=== PATIENT | female | born 1985 | race Caucasian/White ===

== ENCOUNTER → 2016-04-27 | Outpatient (CLI) | payer OTHER ==
--- NOTE | 2016-04-27 14:58 | US ---
EXAMINATION TYPE: US OB <= 14 wk fetus DATE OF EXAM: 04/27/2016 2:31 PM COMPARISON: NONE CLINICAL HISTORY: Z36 Confirm Dates. Confirm Dates, pt has no complaints at this time EXAM PERFORMED: Transabdominal (TA) EXAM MEASUREMENTS: GESTATIONAL AGE / DATING Physician Established: (13 weeks/5 days) EDC: 10/28/2016 Dates by LMP: (13 weeks/5 days) EDC: 10/28/2016 Dates by First Scan: No prior Dates by Current Scan for: (14 weeks/1 days) EDC: 10/25/2016 MATERNAL ANATOMY Uterus: 11.9 x 7.9 x 10.5 cm Right Ovary: 3.3 x 1.7 x 2.3 cm Left Ovary: 2.6 x 1.3 x 2.3 cm Post CDS / Adnexa: wnl Presence of free fluid: No Presence of subchorionic bleed: No GESTATION / SURVEY CRL: 8.1 cm (14 weeks/1 days) MSD: wnl Heart Rate: 144 bpm Rhythm: Normal IUP: Viable IUP IMPRESSION: 1. Single, viable IUP/ No abnormality seen at this time
[2016-04-27 15:10] LABS: CH 32.2; CHCM 35.5; HCT 35.5 % (34.0-46.0); HDW 3.29; HGB 12.3 gm/dL (11.4-16.0); MCH 31.6 pg (25.0-35.0); MCHC 34.6 g/dL (31.0-37.0); MCV 91.4 fL (80.0-100.0); Mean Platelet Volume 6.7; RBC 3.89 m/uL (3.80-5.40); RDW 14.4 % (11.5-15.5); WBC 6.6 k/uL (3.8-10.6)
[2016-04-27 15:11] LABS: Appearance,Urine Clear (Clear); Bacteria,Urine Rare /hpf; Bilirubin,Urine Negative (Negative); Glucose,Urine (UA) Negative (Negative); Ketones,Urine Negative (Negative); Leukocyte Esterase,Urine Trace (Negative); Mucus,Urine Rare /hpf; Nitrite,Urine Negative (Negative); Particle Count 1486; Protein,Urine Negative (Negative); RBC,Urine 1 /hpf (0-5); Specific Gravity,Urine 1.001 (1.001-1.035); Squamous Epithelial Cell,Urine 1 /hpf (0-4); UA Billing (MACRO vs. MICRO) MICRO; Urobilinogen,Urine <2.0 mg/dL (<2.0); WBC,Urine 1 /hpf (0-5)
[2016-04-27 15:24] LABS: Glucose 72 mg/dL (74-99); Non-African American GFR(MDRD) >60 (>60 ml/min/1.73 sqM)
[2016-04-28 06:52] LABS: HIV-1/HIV-2 Ab Screen NONREAC (NON REAC)
== END | disposition home or self-care (01) ==
LOC: RADUSWWP 14:14
PROVIDERS: ATTEND Obstetrics & Gynecology
DX: Z36 Encounter for antenatal screening of mother (principal); Z3A.14 14 weeks gestation of pregnancy
CPT/HCPCS: 36415; 76801; 81001; 82565; 82947; 85027; 86762; 86780; 86850; 86900; 86901; 87086; 87340; 87389; 87491; 87591

== ENCOUNTER → 2016-07-16 | Outpatient (CLI) | payer OTHER ==
[2016-07-16 12:12] LABS: CH 31.5; CHCM 33.7; HDW 3.78; HGB 11.7 gm/dL (11.4-16.0); MCH 32.4 pg (25.0-35.0); MCHC 34.3 g/dL (31.0-37.0); MCV 94.3 fL (80.0-100.0); Mean Platelet Volume 7.2; Poikilocytosis Slight; RBC 3.61 m/uL (3.80-5.40); RDW 13.7 % (11.5-15.5)
== END | disposition home or self-care (01) ==
LOC: LABWHC1 11:12
PROVIDERS: ATTEND Obstetrics & Gynecology
DX: Z34.82 Encounter for supervision of other normal pregnancy, second trimester (principal); Z3A.00 Weeks of gestation of pregnancy not specified
CPT/HCPCS: 36415; 82950; 85027

== ENCOUNTER 2016-10-21 09:52 | Inpatient (IN) | payer OTHER ==
[2016-10-16 11:22] VITALS: BMI 32.1
[2016-10-21] MEDS ORDERED: LACTATED RINGERS 1,000 ML IV ONE (10:32)
[2016-10-21] MEDS ORDERED: ceFAZolin 2 GM in SODIUM CHLORIDE 0.9% 100 ML IVPB ONE (10:32)
[2016-10-21] MEDS ORDERED: CITRIC ACID-SODIUM CITRATE 15 ML CUP PO ONE (10:32)
[2016-10-21 11:03] LABS: Anisocytosis Slight; Basophils % (A) 0 %; CH 29.5; CHCM 33.3; Eosinophils # (A) 0.1 k/uL (0-0.7); Eosinophils % (A) 1 %; HCT 33.4 % (34.0-46.0); HDW 3.64; HGB 11.8 gm/dL (11.4-16.0); Hypochromasia Slight; Luc # (Auto) 0.18; Luc % (Auto) 2; Lymphocytes # (A) 1.5 k/uL (1.0-4.8); Lymphocytes % (A) 18 %; MCH 31.6 pg (25.0-35.0); MCHC 35.4 g/dL (31.0-37.0); MCV 89.3 fL (80.0-100.0); Monocytes # (A) 0.5 k/uL (0-1.0); Monocytes % (A) 6 %; Neutrophils # (A) 5.8 k/uL (1.3-7.7); Neutrophils % (A) 72 %; Poikilocytosis Slight; RBC 3.74 m/uL (3.80-5.40); RDW 16.2 % (11.5-15.5); WBC 8.1 k/uL (3.8-10.6); WBC (Perox) 7.28
[2016-10-21 11:30] LABS: Manual Review Performed; Polychromasia Present
[2016-10-21] MEDS: LACTATED RINGERS 1,000 ML IV SCH ×4 (11:35→21:51)
[2016-10-21] MEDS ORDERED: MORPHINE SULFATE (PF) 0.3 MG/0.3 ML SYR ONE (12:06)
[2016-10-21] MEDS ORDERED: OXYTOCIN 10 UNIT/ML 1 ML VIAL ONE (12:06)
[2016-10-21] MEDS ORDERED: KETOROLAC 30 MG/ML 1 ML VIAL ONE (12:06)
[2016-10-21] MEDS ORDERED: NALBUPHINE 10 MG/ML AMPUL ONE (12:06)
[2016-10-21] MEDS ORDERED: ONDANSETRON 4 MG/2 ML VIAL ONE (12:06)
[2016-10-21] MEDS ORDERED: LACTATED RINGERS 1,000 ML BAG IV ONE (12:06)
[2016-10-21] MEDS ORDERED: PHENYLEPHRINE-0.9% NACL SYG 1 MG/10 ML SYRINGE ONE (12:06)
[2016-10-21] MEDS ORDERED: diphenhydrAMINE 50 MG/ML 1 ML VIAL IVP PRN ×3 (12:39→12:42)
[2016-10-21] MEDS ORDERED: ONDANSETRON 4 MG/2 ML VIAL IVP PRN ×2 (12:39→12:42)
[2016-10-21] MEDS ORDERED: NALOXONE 0.4 MG/ML 1 ML VIAL IV PRN ×2 (12:39→12:42)
[2016-10-21] MEDS ORDERED: MORPHINE SULFATE 4 MG/ML SYRINGE IVP PRN (12:39)
[2016-10-21] MEDS ORDERED: diphenhydrAMINE 25 MG CAP PO PRN (12:42)
[2016-10-21] MEDS ORDERED: diphenhydrAMINE 50 MG CAP PO PRN (12:42)
[2016-10-21] MEDS ORDERED: Acetaminophen-Codeine 300-30mg TAB PO PRN ×2 (12:42)
[2016-10-21] MEDS ORDERED: METOCLOPRAMIDE 5 MG/ML 2 ML VIAL IVP PRN (12:42)
[2016-10-21] MEDS ORDERED: ZOLPIDEM 5 MG TAB PO PRN (12:42)
[2016-10-21] MEDS ORDERED: SIMETHICONE 80 MG CHEWABLE PO PRN (12:42)
[2016-10-21] MEDS ORDERED: ACETAMINOPHEN TAB 325 MG TAB PO PRN (12:42)
--- NOTE | 2016-10-21 12:45 | P.HPOB ---
History of Present Illness H&P Date: 10/21/16 Chief Complaint: Intrauterine at 39 weeks prior sections Angela is a 30-year-old with 2 prior sections. She is here for repeat low transverse section. Her Precis course was, K by initial suspicion of placenta previa although ultrasounds later to this showed her placenta to not be a previa. Otherwise her Precis course has been unremarkable and all questions are answered for her prior to proceeding to the operating room. Risks/benefits/alternatives reviewed. Pertinent labs A+ blood type Rh antibody negative, rubella immune, hepatitis B surface antigen RPR negative. Physical exam vital signs are stable and afebrile. Heart regular, lungs clear, extremities without pain. Osteopathic exams unremarkable. Abdomen is soft gravid uterus is noted. Assessment intrauterine at term with 2 prior sections. Plan repeat low transverse section Past Medical History Past Medical History: No Reported History History of Any Multi-Drug Resistant Organisms: None Reported Past Surgical History: Section, Cholecystectomy Past Anesthesia/Blood Transfusion Reactions: No Reported Reaction Past Psychological History: Anxiety, Bipolar Smoking Status: Never smoker Past Alcohol Use History: None Reported Past Drug Use History: None Reported - Past Family History Mother Family Medical History: No Reported History Medications and Allergies Home Medications Medication Instructions Recorded Confirmed Type Pnv No.95/Ferrous Fum/Folic AC 1 each PO DAILY 10/16/16 10/21/16 History [ Multivitamin Tablet] Allergies Allergy/AdvReac Type Severity Reaction Status Date / Time No Known Allergies Allergy Verified 10/16/16 11:16 Exam Osteopathic Statement: *. No significant issues noted on an osteopathic structural exam other than those noted in the History and Physical/Consult. - Vital Signs Vital signs: Vital Signs Temp Pulse Resp BP Pulse Ox 10/21/16 10:12 97.0 F L 83 17 113/59 98 Intake and Output 10/20/16 10/21/16 10/21/16 22:59 06:59 14:59 Other: Weight 87.543 kg Patient Weight 10/22/16 06:59 Weight 87.543 kg Results Result Diagrams: 10/21/16 10:33 Abnormal Lab Results - Last 24 Hours (Table) 10/21/16 Range/Units 10:33 RBC 3.74 L (3.80-5.40) m/uL Hct 33.4 L (34.0-46.0) % RDW 16.2 H (11.5-15.5) %
--- NOTE | 2016-10-21 12:48 | P.OP ---
Date of Procedure: 10/21/16 Preoperative Diagnosis: Intrauterine : Prior sections Postoperative Diagnosis: Same Procedure(s) Performed: Repeat low transverse section Implants: Anesthesia: spinal Surgeon: Ezra Hartley Submarine Element Coordinator #1: Tor Kemp Estimated Blood Loss (ml): 400 IV fluids (ml): 750 Urine output (ml): 600 Pathology: other (Placenta) Condition: stable Disposition: floor Indications for Procedure: Operative Findings: Male scores of 8 and 9 at one and 5 minutes respectively weight was 7 lbs. 11 oz. Description of Procedure: Patient was taken to the operating suite where a spinal anesthetic was found be adequate. She was prepped and draped in the normal sterile fashion and placed in dorsal supine position with leftward tilt. Initially a Pfannenstiel skin incision was made and this incision was then carried through to underlying layer of the fascia was second knife. Fascia was then nicked in the midline and this opening was extended laterally with Adasm scissors. Superior and inferior aspect of this incision were then grasped tented up and bluntly and sharply dissected off the rectus muscles. Rectus muscles were then divided in the midline and sharp dissection through the peritoneum was made. This opening was then extended superiorly and inferiorly with good visualization of both bowel bladder. Bladder blade was then placed in the bladder flap was identified. It was entered sharply with Metzenbaum scissors and this opening was extended across the face of the uterus with Metzenbaum scissors. Bladder flap was then digitally created knife was used to incise uterus. This opening was fully developed with a hemostat and extended bluntly. Head was then atraumatically delivered mouth nares bulb suctioned and a nuchal cord 1 was noted but the baby was delivered through the nuchal cord. Mouth nares were then bulb suctioned remainder the baby was delivered and the umbilical cord was clamped cut usual fashion. Nursery personnel was present to assume care. Placenta was then delivered intact and Pitocin was added to the IV. Uterus was then exteriorized cleared of clots and debris and closed in 2 layers with 0 Vicryl suture. Once excellent hemostasis was obtained blood and debris was suctioned from the posterior cul-de-sac and it was reinserted into the abdomen. Peritoneal layer was then closed with 0 Vicryl suture fascial layer was closed with 0 Vicryl suture one layer of 3-0 Vicryl was placed in deep subcuticular tissues to reapproximate the skin and the skin was then closed with 3-0 Vicryl on a Harjinder needle. Plan, lap, needle counts were all correct 2 and patient was taken to the recovery room in stable and satisfactory condition.
[2016-10-21] MEDS: KETOROLAC 30 MG/ML 1 ML VIAL IVP PRN (20:03)
[2016-10-21] MEDS: SENNOSIDES-DOCUSATE SODIUM 1 EACH TAB PO SCH (20:03)
[2016-10-22] MEDS: LACTATED RINGERS 1,000 ML IV SCH ×2 (00:45→13:03)
[2016-10-22] MEDS: KETOROLAC 30 MG/ML 1 ML VIAL IVP PRN ×3 (01:40→13:42)
[2016-10-22 06:55] LABS: Anisocytosis Slight; Basophils % (A) 0 %; CH 30.6; Eosinophils % (A) 1 %; HCT 33.6 % (34.0-46.0); HGB 10.6 gm/dL (11.4-16.0); Hypochromasia Slight; Luc # (Auto) 0.16; Luc % (Auto) 2; Lymphocytes # (A) 1.2 k/uL (1.0-4.8); Lymphocytes % (A) 16 %; MCH 29.5 pg (25.0-35.0); MCHC 31.5 g/dL (31.0-37.0); MCV 93.6 fL (80.0-100.0); Mean Platelet Volume 8.6; Monocytes # (A) 0.3 k/uL (0-1.0); Monocytes % (A) 5 %; Neutrophils # (A) 5.8 k/uL (1.3-7.7); Neutrophils % (A) 77 %; Poikilocytosis Slight; RBC 3.59 m/uL (3.80-5.40); RDW 16.7 % (11.5-15.5); WBC 7.5 k/uL (3.8-10.6); WBC (Perox) 7.68
[2016-10-22] MEDS ORDERED: HYDROcodone/APAP 5-325MG 1 EACH TAB PO PRN (07:20)
[2016-10-22] MEDS: SENNOSIDES-DOCUSATE SODIUM 1 EACH TAB PO SCH ×2 (07:39→21:04)
--- NOTE | 2016-10-22 09:54 | P.PNOBGPC ---
Subjective - Subjective Principal diagnosis: Post op day 1 Interval history: Overall patient is doing very well. She is involuting, voiding and she is tolerating a diet. She voices no complaints. Vital signs are stable and afebrile. Continue current care. Patient reports: Reports appetite normal, Reports voiding normally, Reports pain well controlled, Reports ambulating normally : doing well Objective - Vital Signs Latest vital signs: Vital Signs Temp Pulse Resp BP Pulse Ox 10/22/16 08:00 97.9 F 67 16 114/59 99 10/22/16 03:39 98.2 F 65 16 104/49 100 10/22/16 00:00 98.4 F 65 14 110/58 99 10/21/16 20:00 97.8 F 69 16 117/65 98 10/21/16 17:40 98 10/21/16 17:00 17 10/21/16 16:00 98.2 F 70 16 101/51 99 10/21/16 15:40 16 10/21/16 14:54 71 17 104/55 97 10/21/16 14:24 68 17 98/53 100 10/21/16 13:53 63 16 106/52 98 10/21/16 13:39 66 17 98/54 98 10/21/16 13:21 57 L 18 94/55 98 10/21/16 13:09 65 17 99/54 98 10/21/16 12:49 96.4 F L 62 17 105/59 100 10/21/16 10:12 97.0 F L 83 17 113/59 98 Intake and Output 10/21/16 10/22/16 10/22/16 22:59 06:59 14:59 Intake Total 1000 600 Output Total 750 250 Balance -750 750 600 Intake: Intake, IV Titration 1000 Amount Lactated Ringers 1,000 ml 1000 @ 125 mls/hr IV .Q8H [facility] Rx#:[id number] Oral 600 Output: Urine 550 250 Uretheral (Evans) 400 Emesis 200 Other: # Voids 1 1 1 - Exam Lungs: bilateral: normal Chest: Normal S1, Normal S2 Extremities: Present: normal Abdomen: Present: normal appearance, soft. Absent: distention, tenderness Incision: Present: normal, dry, intact Uterus: Present: normal, firm - Labs Labs: Abnormal Lab Results - Last 24 Hours (Table) 10/21/16 10/22/16 Range/Units 10:33 06:34 RBC 3.74 L 3.59 L (3.80-5.40) m/uL Hgb 10.6 L (11.4-16.0) gm/dL Hct 33.4 L 33.6 L (34.0-46.0) % RDW 16.2 H 16.7 H (11.5-15.5) % Plt Count 129 L (150-450) k/uL
[2016-10-22] MEDS: HYDROcodone/APAP 5-325MG 1 EACH TAB PO PRN (18:46)
[2016-10-22] MEDS: IBUPROFEN 600 MG TAB PO PRN (23:30)
[2016-10-23] MEDS: HYDROcodone/APAP 5-325MG 1 EACH TAB PO PRN ×2 (02:14→07:45)
[2016-10-23] MEDS: SENNOSIDES-DOCUSATE SODIUM 1 EACH TAB PO SCH (07:48)
--- NOTE | 2016-10-23 07:57 | P.DS ---
Providers Date of admission: 10/21/16 09:52 Expected date of discharge: 10/23/16 Attending physician: Ezra Hartley Primary care physician: Stated None Hospital Course: Patient is doing very well post op day 2. She is ambulating, voiding, and she is tolerating her diet. She voices no complaints. Vital signs are stable and afebrile. Heart regular, lungs clear, extremities without pain. Abdomen is soft uterus is firm incision is clean dry and intact. We'll plan discharged home today. Prescriptions for [place] and Motrin are provided. Discharge instructions thoroughly reviewed and all questions are answered for her at this time. She is stable for discharge at this time. She will follow up with me in 1 week. Patient Condition at Discharge: Good Plan - Discharge Summary New Discharge Prescriptions: New HYDROcodone/APAP 5-325MG [[place] 5-325] 1 tab PO Q4HR PRN #30 tab PRN Reason: Pain Ibuprofen [Motrin] 600 mg PO Q6HR PRN #30 tab PRN Reason: Pain No Action Pnv No.95/Ferrous Fum/Folic AC [ Multivitamin Tablet] 1 each PO DAILY Discharge Medication List Pnv No.95/Ferrous Fum/Folic AC [ Multivitamin Tablet] 1 each PO DAILY [History] HYDROcodone/APAP 5-325MG [[place] 5-325] 1 tab PO Q4HR PRN #30 tab 10/23/16 [Rx] Ibuprofen [Motrin] 600 mg PO Q6HR PRN #30 tab 10/23/16 [Rx] Follow up Appointment(s)/Referral(s): Ezra Hartley DO [Doctor of Osteopathic Medicine] - 1 Week Activity/Diet/Wound Care/Special Instructions: No heavy lifting, limit stairs and driving and pelvic rest. If any high temperatures, heavy bleeding, or severe pain call my office Discharge Disposition: HOME SELF-CARE
--- NOTE | 2016-10-23 08:22 | P.PN ---
Progress Note - Text Date: 10/22/2016 Time: 715 The patient is status post section Vital signs stable VAS: 0-10 Patient has no complaints of pain. The patient incurred some minimal itching yesterday, this itching is now subsiding. Pain meds to be managed by service.
[2016-10-23 08:55] VITALS: BP 120/70; PULSE 78; RESP 17; TEMP 98.1
[2016-10-23] MEDS: IBUPROFEN 600 MG TAB PO PRN (09:58)
== END 2016-10-23 11:53 | disposition home or self-care (01) | DRG 766 ==
LOC: 4FBP 09:52
PROVIDERS: ADMIT Obstetrics & Gynecology; ATTEND Obstetrics & Gynecology
PROC: 10D00Z1 Extraction of Products of Conception, Low, Open Approach (ICD-10-PCS; principal; 2016-10-21 12:00)
DX: O34.211 Maternal care for low transverse scar from previous cesarean delivery (principal); O69.81X0 Labor and delivery complicated by cord around neck, without compression, not applicable or unspecified; Z37.0 Single live birth; Z3A.39 39 weeks gestation of pregnancy
CPT/HCPCS: 85025; 86850; 86900; 86901; 88307

== ENCOUNTER → 2018-04-19 | Outpatient (CLI) | payer OTHER ==
[2018-04-19 18:51] LABS: Albumin 4.7 g/dL (3.80-4.90); Albumin/Globulin Ratio 2.47 (1.60-3.17); Bilirubin, Conjugated 0.3 mg/dL (0.20-0.40); Bilirubin,Unconjugated 0.7 mg/dL; Globulin 1.9 g/dL (1.6-3.3); Total Protein 6.6 g/dL (6.2-8.2)
== END | disposition home or self-care (01) ==
LOC: LABWHC1 12:08
PROVIDERS: ATTEND Internal Medicine
DX: R74.8 Abnormal levels of other serum enzymes (principal)
CPT/HCPCS: 36415; 80076; 82248

== ENCOUNTER → 2018-10-05 | Outpatient (CLI) | payer OTHER ==
[2018-10-05 09:36] LABS: Basophils % (A) 0 %; Eosinophils # (A) 0.1 k/uL (0-0.7); Eosinophils % (A) 2 %; HCT 41.1 % (34.0-46.0); Lymphocytes # (A) 1.6 k/uL (1.0-4.8); Lymphocytes % (A) 31 %; MCH 31.9 pg (25.0-35.0); MCHC 34.1 g/dL (31.0-37.0); MCV 93.5 fL (80.0-100.0); Mean Platelet Volume 6.9; Monocytes # (A) 0.2 k/uL (0-1.0); Monocytes % (A) 5 %; Neutrophils % (A) 60 %; Platelet Count 201 k/uL (150-450); RBC 4.39 m/uL (3.80-5.40); RDW 14.1 % (11.5-15.5); WBC 5.1 k/uL (3.8-10.6)
[2018-10-05 17:47] LABS: African American GFR (CKD) 132.9 (60.0-200.0); Albumin 4.7 g/dL (3.80-4.90); Albumin/Globulin Ratio 2.61 (1.60-3.17); Anion Gap 6.5 mmol/L (4.00-12.00); BUN/Creat Ratio 15.71 Ratio (12.00-20.00); Calcium 9.5 mg/dL (8.7-10.3); Carbon Dioxide 26.5 mmol/L (21.6-31.8); Globulin 1.8 g/dL (1.6-3.3); LDL Cholesterol,Calculated 94.8 mg/dL (0.0-131.0); Potassium 4.9 mmol/L (3.5-5.5); Total Bilirubin 0.7 mg/dL (0.2-1.2); Total Protein 6.5 g/dL (6.2-8.2); VLDL Calculation 38.2 mg/dL (5.00-40.00)
== END | disposition home or self-care (01) ==
LOC: LABWHC1 09:00
PROVIDERS: ATTEND Internal Medicine
DX: F31.9 Bipolar disorder, unspecified (principal)
CPT/HCPCS: 36415; 80053; 80061; 84443; 85025

== ENCOUNTER → 2018-11-01 | Outpatient (CLI) | payer OTHER ==
[2018-11-01 11:40] VITALS: BP 122/83; PULSE 91; RESP 18
--- NOTE | 2018-11-01 12:26 | P.PAINCN ---
History of Present Illness - Reason for Consult Consult date: 11/01/18 - History of Present Illness This is an initial consultation for this 33 years old female with five-year history of severe midback and low back pain, the pain started after she fell from the stairs, and from that time on she continued to have severe pain, she treated with different pain medications with minimal relief, she continued to have severe pain but mostly in the low back area, the pain is continuous, increased with any activity, she denies any fever or night sweats she denies any change in the bowel movement or urination, she is able to ambulate, without difficulty but she has increased pain Past Medical History Past Medical History: Fibromyalgia Additional Past Medical History / Comment(s): hx migraines, "on metformin for sugar a little high and for wt loss", "something on my lower spine on MRI" History of Any Multi-Drug Resistant Organisms: None Reported Past Surgical History: Section, Cholecystectomy Past Anesthesia/Blood Transfusion Reactions: No Reported Reaction Past Psychological History: Anxiety, Bipolar Additional Psychological History / Comment(s): borderline personality disorder, severe anxiety disorder Smoking Status: Never smoker Past Alcohol Use History: None Reported Past Drug Use History: Marijuana - Past Family History Mother Family Medical History: No Reported History Medications and Allergies Home Medications Medication Instructions Recorded Confirmed Type ALPRAZolam [Xanax] 1 mg PO QID 10/28/18 11/01/18 History Cyclobenzaprine [Flexeril] 10 mg PO TID 10/28/18 11/01/18 History DULoxetine HCL [Cymbalta] 60 mg PO DAILY 10/28/18 11/01/18 History Ondansetron [Zofran] 4 mg PO TID PRN 10/28/18 11/01/18 History lamoTRIgine [LaMICtal] 100 mg PO DAILY 10/28/18 11/01/18 History metFORMIN HCL [Glucophage] 1,000 mg PO PC-SUPPER 10/28/18 11/01/18 History traMADol HCL [Ultram] 1 tab PO DAILY PRN 11/01/18 11/01/18 History Allergies Allergy/AdvReac Type Severity Reaction Status Date / Time No Known Allergies Allergy Verified 11/01/18 11:29 Physical Exam Vitals: Vital Signs Pulse Resp BP Pulse Ox 11/01/18 11:31 91 18 122/83 98 REVIEW OF ORGAN SYSTEMS: CONSTITUTIONAL: No fevers or chills. No recent weight loss. EYES: History of troubles with vision. No glasses. HEENT: No difficulties with hearing. No nosebleeds. No difficulty swallowing. RESPIRATORY: Past pneumonia. Denies any troubles with breathing or dyspnea on exertion. CARDIOVASCULAR: Denies any chest pain, palpitations, or recent heart attacks. GASTROINTESTINAL: Denies fatty food intolerance. Has change in bowel habits and gas bloat. GENITOURINARY: Denies any blood in urine. Has increased urinary frequency. NEUROLOGICAL: Denies any numbness or tingling along the distal extremities. No seizure disorders or headaches. MUSCULOSKELETAL: Has mid and low back pain. SKIN: Past t skin cancer. No rash. PSYCHIATRIC: Denies current depression or suicidal thoughts. ENDOCRINE: Denies current thyroid disorders. Denies any blood sugar glucose intolerance. HEME/LYMPHATIC: Denies any lumps and bumps around the neck. History of deep venous thrombosis. ALLERGY/IMMUNOLOGY: No immunoglobulin therapy. No immune deficiencies. BREAST: Denies current breast lumps, pain or nipple dis charge. Physical Examinations : Constitutiona : Cooperative , not in acute distress . HEENT : nech : supple , no Lymphadenopathy , normal thyroid size . eyes : no ptosis , no icterus, no photophobia . ENT : normal of hearing , normal oropharynx , no Thrush . Respiratory : Chest clear to auscultations Bilaterally , no wheezing , no Rhonchi . Cardiovascula : regular rate and rhythem , S1 , S2 , no S3 , no S4. Gastrointestina : abdomen soft no tenderness , bowel sounds , no organomegally . Genitourinary : Defferred . neurologic : Cranial nerve II to XII intact , no focal neurological deffecit . psychatric : alert , oriented X 3 , appropriate affect , intact judgment and insight . Lymphatic : no Lymphadenopathy . musculoskeltal : Cervical Spine motor stregnth in the deltoid and biceps, normal right side , normal Left side motor stregnth biceps and the wrist extensors normal right side ,normal left side . Thoracic spine: Flexion and extension and lateral rotation associated with severe pain Lumber spine moter stegnth lower extremities ,thigh and legs 5/5 Right side , 5/5 Left side deep tendon reflexes : normal Knee Jerk , normal ankle Jerk positive lumber facet Loading Test Range of motion of the lumbar spine Flexion 30 degrees, extension 10 degrees strait leg raising test= negative bilaterally Fabere test = negative bilaterally Sever tenderness over the Sacroiliac joint on the left side Gaenslen test positive on the left side Seated flexion test positive on the left Results Comments: MRI of the thoracic spine degenerative disc disease at T6 7 level and disc desiccation. MRI of the lumbar spine L5-S1 epidural lipomatosis and disc bulging at L5-S1 Assessment and Plan Assessment: Assessment and plan=1-lumbar spondylosis with lumbar facet arthropathy. 2-lumbar degenerative disc disease, lumbar epidural lipomatosis 3-left sacroiliitis 4-thoracic degenerative disc disease at T6 7 level Currently most of the pain is in the lumbar area, patient could benefit from diagnostic medial branch block L3, L4 ,L5 bilaterally Patient had epidural lipomatosis, which is relatively contraindication to do epidural steroid injection, Time with Patient: Greater than 30 PQRS Measure Charge Sheet Measure #130: Documentation of Current Meds in Medical Chart: Patient's medications documented in chart Measure #226: Tobacco Use: Screen & Cessation Intervention: Pt not a tobacco user Measure #111: Pneumonia Vaccination: Pneumococcal vaccine NOT administered or previously given Measure #47: Advance Care Plan: Advance care planning discussed & documented, pt chose/unable to give Measure #412: Opioid Treatment Agreement: No documentation of signed opioid treatment agreement Measure #408: Opioid Therapy Follow-up Evaluation: Patient had NO f/u eval minimum every 3 months during opioid therapy Measure #317: Preventitive Care & Scrn High Bld Press & F/U: Pre-hypertensive or hypertensive BP documented, pt will f/u with PCP Measure #128: Body Mass Index (BMI) Screening & Follow-up: BMI documented ABOVE normal parameters - f/u documented Measure #131: Pain Assessment & Follow-up: Pain positive & plan documented, Follow-up scheduled Measure #431: Unhealthy Alcohol Use Preventative Care & Scrn: Patient not identified as an unhealthy alcohol user PQRS Narrative: Smoking Status Never smoker Blood Pressure 122/83 Pain Intensity [Back] 7 Scale Used Numeric (1 - 10) Hx Alcohol Use (MH) No Home Medications: Ambulatory Orders ALPRAZolam [Xanax] 1 mg PO QID 10/28/18 Cyclobenzaprine [Flexeril] 10 mg PO TID 10/28/18 DULoxetine HCL [Cymbalta] 60 mg PO DAILY 10/28/18 Ondansetron [Zofran] 4 mg PO TID PRN 10/28/18 lamoTRIgine [LaMICtal] 100 mg PO DAILY 10/28/18 metFORMIN HCL [Glucophage] 1,000 mg PO PC-SUPPER 10/28/18 traMADol HCL [Ultram] 1 tab PO DAILY PRN 11/01/18
== END | disposition home or self-care (01) ==
LOC: PNWHC3 11:15
PROVIDERS: ATTEND Specialist
DX: G89.29 Other chronic pain (principal); M51.36 Other intervertebral disc degeneration, lumbar region; M47.816 Spondylosis without myelopathy or radiculopathy, lumbar region; M46.96 Unspecified inflammatory spondylopathy, lumbar region; M46.1 Sacroiliitis, not elsewhere classified; M51.34 Other intervertebral disc degeneration, thoracic region; E88.2 Lipomatosis, not elsewhere classified; Z98.890 Other specified postprocedural states; Z79.84 Long term (current) use of oral hypoglycemic drugs; Z79.891 Long term (current) use of opiate analgesic; Z79.899 Other long term (current) drug therapy
CPT/HCPCS: 99211

== ENCOUNTER 2018-11-10 09:55 | Day surgery (SDC) | payer OTHER ==
[2018-11-09 09:07] VITALS: BMI 33.3
[~2018-11-10 09:55] MED LIST: LACTATED RINGERS 1,000 ML IV SCH
[2018-11-10 10:44] VITALS: TEMP 98.2
[2018-11-10] MEDS ORDERED: LIDOCAINE 1% 20 ML VIAL (10MG/ML) FOR IV START INTRADERMA ONE (11:02)
[2018-11-10 11:14] LABS: Glucose,Whole Blood 104 mg/dL (75-99)
--- NOTE | 2018-11-10 11:54 | P.PCN ---
Date of Procedure: 11/10/18 Procedure(s) Performed: PREOPERATIVE DIAGNOSIS : 1- Lumbar spondylosis with Facet Arthropathy without myelopathy . 2- Lumber degenerative disc disease POSTOPERATIVE DIAGNOSIS: 1- Lumbar spondylosis with Facet Arthropathy without myelopathy . 2- Lumber degenerative disc disease PROCEDURE: Diagnostic bilateral L3 , L4 , and [id number] branch block under fluoroscopy guidance(fluoroscopy images available in the radiology Department ) (To block the facet joint at L4- 5, and L5-S1) ANESTHESIA: Local with Ropivacain 0.5 % 6 ml , moderate sedation with intravenous Versed 2 mg and Fentanyl 50 mcg. EBL: Minimal COMPLICATION: None. IV FLUIDS: 100 mL of normal saline. PROCEDURE INDICATION: Chronic low back pain secondary to Facet arthropathy unresponsive to conservative treatment. PROCEDURE DESCRIPTION: the patient was seen and identified in the preop holding area , risks and benefits and possible complications of the procedure and alternative were discussed with the patient, and the patient agreed to proceed with the procedure and signed the consent IV was started and vital signs monitored during the procedure and fluoroscopy was used to maximize the benefit and accuracy of the needle placement, and sedation was given to decrease patient anxiety, patient was taken to the procedure room and placed in prone position vital signs monitored in the back prepped with chlorhexidine X3 then under s trict sterile technique using a right oblique fluoroscopy ,the junction of the transverse process and the superior articulating process of the right L3 , L4, and L5 vertebra which corresponding to the fluoroscopy image of the eye of the Isaac dog on the block side for the medial branches and subsequently , after local infiltration of skin and subcu tissuies with Ropivacaine 0.5 % , one mL at each level ,then 22-gauge Quincke-type needles , 3 needle was used , each one of them placed at the junction of the base of the transverse process and the superior articular process at the appropriate level, and the needle was advanced until the periosteum contacted, needle placement confirmed with AP oblique and lateral view and after appropriate needle placement confirmed, and after negative aspiration for heme and CSF and there was no paresthesia 1-1/2 mL of Ropivacaine 0.5% mixed with 20 mg Depo-Medrol , then half mL injected at each level after negative aspiration the needle subsequently removed and the same procedure repeated for the left side at left side at L3, L4and L5 levels. At the end of the procedure and the needles removed and a bandage applied after the skin was cleaned the cleaning solution patient taken to recovery room in stable condition and monitors in the recovery room for 20-30 minutes and discharged home in stable condition after discharge criteria met and patient will follow up with the pain clinic in 2-4 weeks
[2018-11-10] MEDS ORDERED: IV FLUID CONTINUATION 1,000 ML IV ONE (11:59)
[2018-11-10 12:10] VITALS: RESP 16
[2018-11-10 12:29] VITALS: BP 107/65; PULSE 95
--- NOTE | 2018-11-10 13:37 | FL ---
EXAMINATION TYPE: FL guided pain mgmt statistic DATE OF EXAM: 11/10/2018 CLINICAL HISTORY: Low back pain. TECHNIQUE: Fluoroscopy. COMPARISON: None. FINDINGS: Fluoroscopic guidance was provided during pain relief procedure performed by Dr. Torres . A total of 8 seconds of fluoroscopic time was utilized during the procedure and 4 spot images are acquired. Images acquired shows needle localization at several levels in the lower lumbar spine. IMPRESSION: As Above.
== END 2018-11-10 12:31 | disposition home or self-care (01) ==
LOC: ORPAIN 09:55
PROVIDERS: ATTEND Specialist
DX: M47.816 Spondylosis without myelopathy or radiculopathy, lumbar region (principal); M51.36 Other intervertebral disc degeneration, lumbar region; M46.1 Sacroiliitis, not elsewhere classified; G89.29 Other chronic pain
CPT/HCPCS: 81025; 64493; 64494; J2250; J1030; J3010; 99152

== ENCOUNTER → 2018-11-28 | Day surgery (SDC) | payer OTHER ==
[2018-11-23 10:33] VITALS: BMI 33.3
[~2018-11-28] MED LIST changes: +IV FLUID CONTINUATION 1,000 ML IV ONE; +LACTATED RINGERS 1,000 ML IV ONE; +LIDOCAINE 1% 20 ML VIAL (10MG/ML) FOR IV START INTRADERMA ONE
[2018-11-28 09:41] VITALS: RESP 18; TEMP 97.2
[2018-11-28 09:51] LABS: Glucose,Whole Blood 111 mg/dL (75-99)
--- NOTE | 2018-11-28 11:14 | P.PCN ---
Date of Procedure: 11/28/18 Procedure(s) Performed: PREOPERATIVE DIAGNOSIS : Lumbar spondylosis with Facet Arthropathy without myelopathy POSTOPERATIVE DIAGNOSIS: same PROCEDURE: Second Diagnostic lumbar medial branch block with fluoroscopy at L3, L4, L5 lateral which covers facets L4-5 and L5-S1 ANESTHESIA: Local anesthetic; moderate IV sedation with Versed 1 mg, sedation time 15 minutes Fluoroscopy was used for the procedure and images were saved in the radiology portion of the chart. Surgeon: Tashia Martinez MD PROCEDURE INDICATION: Lumbar back pain without radiculopathy, not responsive to conservative management. PROCEDURE DESCRIPTION: the patient was seen and identified in the preop holding area , risks and benefits and possible complications of the procedure and alternatives were discussed with the patient, and the patient agreed to proceed with the procedure and signed the consent . IV was started , vital signs were monitored during the procedure and fluoroscopy was used to maximize the benefit and accuracy of the needle placement, and sedation was given to decrease patient anxiety. Patient was taken to the procedure room and placed in prone position. The lumbar region was prepped using chlorhexidineX-2. Under strict sterile technique using AP fluoroscopy the bilateral sacral ala were identified and using ipsilateral oblique fluoroscopy ,the junction of the transverse process and the superior articulating process of the L4, L5 vertebra which corresponds to the fluoroscopy image of the eye of the Isaac dog for the medial branches were identified. Subsequently, after local infiltration of skin with lidocaine 1% 0.2 mL at each level , a 25-gauge 5 inch Quincke-type needle was placed at the junction of the base of the transverse process and the superior articular process at the appropriate level as well as the sacral ala, and the needle was advanced until the periosteum contacted, needle placement confirmed with AP and oblique fluoroscopy, 0.2 mL of Isovue 200 per level was injected which revealed no vascular uptake and after negative aspiration, 0.5 mL of ropivacaine 0.5% was injected at each level and the needle subsequently removed . At the end of the procedure and the needles were removed and a bandage applied after the skin was cleaned. The patient was taken to recovery room in stable condition and monitors in the recovery room for 20-30 minutes and discharged home in stable condition after discharge criteria met and patient will follow up in clinic in 2 weeks EBL: Minimal COMPLICATION: None.
[2018-11-28 11:26] VITALS: BP 111/74; PULSE 82
--- NOTE | 2018-11-28 13:08 | FL ---
EXAMINATION TYPE: FL guided pain mgmt statistic DATE OF EXAM: 11/28/2018 COMPARISON: NONE HISTORY: Back pain TECHNIQUE: Fluoroscopy. FINDINGS: Fluoroscopic guidance was provided during procedure performed by Dr. Martinez. A total of 6 se conds of fluoroscopic time was utilized during the procedure and 3 spot images was acquired demonstra ting multilevel localization of the lumbar spine. IMPRESSION: As Above.
== END ==
LOC: ORPAIN 09:16
PROVIDERS: ATTEND Anesthesiology
DX: M47.816 Spondylosis without myelopathy or radiculopathy, lumbar region (principal); M79.7 Fibromyalgia; Z90.49 Acquired absence of other specified parts of digestive tract; F41.9 Anxiety disorder, unspecified; F31.9 Bipolar disorder, unspecified; F60.3 Borderline personality disorder; Z79.899 Other long term (current) drug therapy; Z79.84 Long term (current) use of oral hypoglycemic drugs; M51.36 Other intervertebral disc degeneration, lumbar region; M46.1 Sacroiliitis, not elsewhere classified; M51.34 Other intervertebral disc degeneration, thoracic region
CPT/HCPCS: 81025; 64493; 64494; J2250; Q9966; 99152

== ENCOUNTER → 2021-02-03 | Outpatient (CLI) | payer OTHER ==
[2021-02-03 14:24] LABS: HCT 44.7 % (37.2-46.3); HGB 14.5 g/dL (12.0-15.0); MCH 31.6 pg (27.0-32.0); MCHC 32.4 g/dL (32.0-37.0); MCV 97.4 fL (80.0-97.0); Mean Platelet Volume 9.4 fL (9.5-12.2); Platelet Count 216 X 10*3/uL (140-440); RBC 4.59 X 10*6/uL (4.10-5.20); RDW 11.9 % (11.5-14.5); WBC 7.17 X 10*3/uL (4.50-10.00)
[2021-02-03 15:21] LABS: ALT 28 U/L (8-44); AST 19 U/L (13-35); African American GFR (CKD) 132.3 (60.0-200.0); Albumin 4.1 g/dL (3.8-4.9); Albumin/Globulin Ratio 2.56 (1.60-3.17); Alkaline Phosphatase 34 U/L (41-126); BUN/Creat Ratio 15.77 Ratio (12.00-20.00); Blood Urea Nitrogen 10.5 mg/dL (9.0-27.0); Calcium 9.4 mg/dL (8.7-10.3); Carbon Dioxide 23.4 mmol/L (20.0-27.5); Chloride 105 mmol/L (96-109); Chol/HDL Ratio 3.75 Ratio; Globulin 1.6 g/dL (1.6-3.3); Glucose 113 mg/dL (70-110); Non-African American GFR(CKD) 114.1 (60.0-200.0); Potassium 5.3 mmol/L (3.5-5.5); Sodium 139 mmol/L (135-145); Total Protein 5.7 g/dL (6.2-8.2)
== END | disposition home or self-care (01) ==
LOC: LABWHC1 08:37
PROVIDERS: ATTEND Family Medicine
DX: Z00.01 Encounter for general adult medical examination with abnormal findings (principal)
CPT/HCPCS: 36415; 80053; 80061; 85027

== ENCOUNTER → 2021-05-29 | Outpatient (CLI) | payer OTHER ==
--- NOTE | 2021-05-29 19:22 | US ---
EXAMINATION TYPE: Ultrasound OB <= 14 week fetus DATE OF EXAM: 05/29/2021 2:44 PM COMPARISON: NONE CLINICAL HISTORY: 35-year-old female Z36.87 UNCERTAIN LMP. EXAM PERFORMED: Transabdominal (TA) EXAM MEASUREMENTS: GESTATIONAL AGE / DATING Physician Established: Not yet established Dates by LMP: (13 weeks/6 days) EDC: 11-28-21 Dates by First Scan: No previous this is first scan Dates by Current Scan for: (14 weeks/1 days) EDC: 11-26-21 MATERNAL ANATOMY Uterus: 15.5 x 9.1 x 6.9cm Right Ovary: obscured by overlying bowel gas Left Ovary: 2.6 x 1.4 x 1.6cm Post CDS / Adnexa: wnl Presence of free fluid: wnl GESTATION / SURVEY CRL: 8.2cm (14 weeks/1 days) Yolk Sac (normal less than 6mm): not visualized Heart Rate: 154 bpm IUP: Viable IUP Age Appropriate Anatomy: Cord Insertion: Unable to visualize due to position Limbs: Visualized Calvarium: Visualized Date of LMP: 02-21-21 Beta HcG (if available): Not available at this time IMPRESSION: 1. Single live intrauterine with estimated gestational age of 13 weeks 6 days by LMP. Curre nt ultrasound biometry is concordant (14 weeks 1 day by CRL). 2. Complete survey recommended at 18-20 weeks.
== END | disposition home or self-care (01) ==
LOC: RADUSWWP 14:18
PROVIDERS: ATTEND Obstetrics & Gynecology
DX: Z36.87 Encounter for antenatal screening for uncertain dates (principal); Z3A.13 13 weeks gestation of pregnancy
CPT/HCPCS: 76801

== ENCOUNTER 2021-11-21 06:02 | Inpatient (IN) | payer OTHER ==
[2021-11-21] MEDS: LACTATED RINGERS 1,000 ML IV SCH ×5 (06:20→23:49)
[2021-11-21] MEDS ORDERED: CITRIC ACID-SODIUM CITRATE 15 ML CUP PO ONE (06:26)
[2021-11-21 06:39] LABS: Basophils % (A) 0 %; Eosinophils # (A) 0.1 k/uL (0-0.7); Eosinophils % (A) 1 %; HCT 39.5 % (34.0-46.0); HGB 13.2 gm/dL (11.4-16.0); Lymphocytes # (A) 1.5 k/uL (1.0-4.8); Lymphocytes % (A) 18 %; MCH 32.5 pg (25.0-35.0); MCHC 33.4 g/dL (31.0-37.0); MCV 97.4 fL (80.0-100.0); Mean Platelet Volume 8.9; Monocytes # (A) 0.4 k/uL (0-1.0); Monocytes % (A) 4 %; Neutrophils # (A) 6.5 k/uL (1.3-7.7); Neutrophils % (A) 76 %; Platelet Count 150 k/uL (150-450); Poikilocytosis Slight; RBC 4.06 m/uL (3.80-5.40); RDW 14.4 % (11.5-15.5); WBC 8.6 k/uL (3.8-10.6)
--- NOTE | 2021-11-21 08:28 | P.HPOB ---
History of Present Illness H&P Date: 11/21/21 Chief Complaint: 39-0/7 weeks, repeat with tubal ligation the patient is a 35-year-old 4 para 3003 admitted at 39-0/7 weeks as established by last menstrual period and confirmed by 18 week ultrasound. She is admitted for repeat low transverse section having previously undergone 3 sections. She additionally has requested an intraoperative bilateral tubal occlusion with Filshie clips and signed consent to that effect in the office. Her has otherwise been uncomplicated. Group B strep status is negative. She does fall into the category of advanced maternal age and underwent fraction testing for trisomy which was negative. Obstetrical history: [employer] 4 para 3003 with 3 term sections as noted above. Current statistics are listed in history of present illness. EDC of 11/28/2021 was determined by last menstrual period and confirmed by 18 week ultrasound. Laboratory workup demonstrates a blood type of A+ with a negative antibody screen. Rubella status is immune. The remainder of the labor atory workup was within normal limits. One hour Glucola was initially elevated but followed by a normal three-hour glucose tolerance test. Group B strep status is negative. Gynecologic history: Unremarkable with no history of any infections to include STDs. Review of Systems review of systems is confined to history of present illness. Past Medical History Past Medical History: Fibromyalgia Additional Past Medical History / Comment(s): hx migraines, "on metformin for sugar a little high and for wt loss", Low Back Pain. Arthritis. Borderline Personality Disorder, Anxiety, Depression. History of Any Multi-Drug Resistant Organisms: None Reported Past Surgical History: Section, Cholecystectomy Past Anesthesia/Blood Transfusion Reactions: No Reported Reaction Past Psychological History: Anxiety, Bipolar Additional Psychological History / Comment(s): borderline personality disorder, severe anxiety disorder Smoking Status: Never smoker Past Alcohol Use History: None Reported Past Drug Use History: Marijuana Additional Drug Use History / Comment(s): CURRENT MARIJUANA USE - Past Family History Mother Family Medical History: No Reported History Medications and Allergies Home Medications Medication Instructions Recorded Confirmed Type Cyclobenzaprine [Flexeril] 10 mg PO TID 10/28/18 11/21/21 History DULoxetine HCL [Cymbalta] 60 mg PO DAILY 10/28/18 11/21/21 History Ondansetron [Zofran] 4 mg PO TID PRN 10/28/18 11/21/21 History LORazepam [Ativan] 0.5 tab PO DAILY 11/21/21 11/21/21 History Allergies Allergy/AdvReac Type Severity Reaction Status Date / Time No Known Allergies Allergy Verified 11/23/18 09:42 Exam Vital Signs Temp Pulse Resp BP Pulse Ox 11/21/21 06:19 97.4 F L 106 H 18 131/72 98 Intake and Output 11/20/21 11/21/21 11/21/21 22:59 06:59 14:59 Other: Weight 95.254 kg in general, this is a well-developed, well-nourished white female in no acute distress. Her heart has a regular rhythm and rate without murmur. Her lungs are clear to auscultation bilaterally in all [place]. Her abdomen is gravid, nondistended, has normal active bowel sounds, soft, nontender, and without any palpable masses aside from uterine fundus. Her extremities are without any cyanosis, clubbing, or edema and are nontender to palpation bilaterally. Digital cervical examination is deferred. Results Result Diagrams: 11/21/21 06:28 Assessment and Plan (1) Term Current Visit: Yes Status: Acute Code(s): Z34.90 - ENCNTR FOR SUPRVSN OF NORMAL , UNSP, UNSP TRIMESTER SNOMED Code(s): 31970328 (2) Previous section Current Visit: Yes Status: Acute Code(s): Z98.891 - HISTORY OF UTERINE SCAR FROM PREVIOUS SURGERY SNOMED Code(s): 219017167 (3) Family planning Current Visit: Yes Status: Acute Code(s): Z30.09 - ENCOUNTER FOR OTH GENERAL CNSL AND ADVICE ON CONTRACEPTION SNOMED Code(s): 767188580 Plan: the patient is admitted for repeat low transverse section with intraoperative bilateral tubal occlusion using Filshie clips. The risks and complications the procedures have been thoroughly explained and the patient unde rstands and agrees to proceed.
[2021-11-21] MEDS ORDERED: KETOROLAC 15 MG/ML 1 ML VIAL ONE (08:38)
[2021-11-21] MEDS ORDERED: NALBUPHINE 10 MG/ML (1 ML AMP) ONE (08:38)
[2021-11-21] MEDS ORDERED: MORPHINE SULFATE (PF) 0.3 MG/0.3 ML SYR ONE (08:38)
[2021-11-21] MEDS ORDERED: ONDANSETRON 4 MG/2 ML VIAL ONE (08:38)
[2021-11-21] MEDS ORDERED: diphenhydrAMINE 25 MG CAP PO PRN (09:32)
[2021-11-21] MEDS ORDERED: METOCLOPRAMIDE 5 MG/ML 2 ML VIAL IVP PRN (09:32)
[2021-11-21] MEDS ORDERED: KETOROLAC 15 MG/ML 1 ML VIAL IVP PRN (09:32)
[2021-11-21] MEDS ORDERED: ZOLPIDEM 5 MG TAB PO PRN (09:32)
[2021-11-21] MEDS ORDERED: diphenhydrAMINE 50 MG CAP PO PRN (09:32)
[2021-11-21] MEDS ORDERED: ONDANSETRON 4 MG/2 ML VIAL IVP PRN (09:32)
[2021-11-21] MEDS ORDERED: diphenhydrAMINE 50 MG/ML 1 ML VIAL IVP PRN ×2 (09:32)
[2021-11-21] MEDS ORDERED: NALOXONE 0.4 MG/ML 1 ML VIAL IV PRN (09:32)
[2021-11-21] MEDS ORDERED: SIMETHICONE 80 MG CHEWABLE PO PRN (09:32)
--- NOTE | 2021-11-21 09:41 | P.OP ---
Date of Procedure: 11/21/21 Preoperative Diagnosis: #1. 39-0/7 weeks, previous section 3 #2. Undesired fertility #3. Advanced maternal age Postoperative Diagnosis: same Procedure(s) Performed: #1. Repeat low transverse section #2. Intraoperative bilateral tubal occlusion with Filshie clips Anesthesia: spinal Surgeon: Cachorro Waite Catalyst Concentration Operator #1: Erin Oviedo Estimated Blood Loss (ml): 745 IV fluids (ml): 700 Urine output (ml): 200 Pathology: none sent Condition: stable Disposition: floor Operative Findings: preoperatively, the patient had requested intraoperative bilateral tubal occlusion and signed a consent to that effect in the office. She verbally reiterated this desire today both prior to the procedure and during the procedure. Intraoperatively, she was delivered of a viable 6 lbs. 11 oz. baby girl with Apgars of 8 at 1 minute and 9 at 5 minutes delivered in the direct occiput posterior position. The placenta was delivered manually, intact, and grossly normal with a grossly normal three-vessel cord. The uterus, tubes, and ovaries were entirely normal to inspection. After reaffirming the patient's desire for tubal ligation, Filshie clip was placed firmly across the isthmic portion of each fallopian tube and fixed. Description of Procedure: the patient was prepped and draped in usual fashion after spinal anesthesia was administered by the anesthesiologist. A Pfannenstiel incision was made through pre-existing scar and extended into the abdominal cavity without significant difficulty. There was a fair amount of scarring at the level of the rectus muscles which was ultimately negotiated without significant difficulty. The bladder peritoneum was elevated, incised, and reflected distally. A site was selected in the lower uterine segment where a 2 cm incision was made in the transverse plane to enter the uterus at which time clear fluid was noted. The incision was extended in both directions using the bandage scissors. The head was delivered up and through the incision where the nose and mouth were thoroughly suctioned. The remainder of the infant was delivered onto the field where the cord was doubly clamped, cut, and the passed for resuscitative measures with weight and Apgars as noted above. A segment of cord was doubly clamped, cut, and set aside should cord gases become necessary. The placenta was delivered manually, intact, and grossly normal with a grossly normal three- vessel cord as noted above. The uterus was exteriorized and the interior cavity of uterus swept of any remaining placental or membranous fragments. The margins of the uterine incision were grasped with Sorensen clamps and the incision closed in a single running locking stitch of 0 chromic catgut from margin to margin. Hemostasis appeared to be excellent. The posterior cul-de-sac was suctioned with a guard followed by laparotomy sponge. The patient was again asked regarding desire for tubal ligation and confirmed her desire to proceed. A Filshie clip was placed across the isthmic portion of the right fallopian tube approximately 2-3 cm from the cornu and firmly affixed. A similar operation was carried out on the left without difficulty. The uterus was replaced within the abdominal cavity and the gutters were swept of any remaining blood, fluid, or clot. The incision was reexamined and found to be hemostatic. The parietal peritoneum was loosely reapproximated in the layer of muscles examined and found to be hemostatic. The fascia was closed with 2 running stitches of 0 Vicryl proceeding from the lateral margins to the midpoint. The subcutaneous tissues were irrigated, made hemostatic with the Bovie, and reapproximated with a running stitch of 30 plain catgut. The skin was approximated with a running subcuticular stitch of 4-0 Vicryl followed by half-inch Steri-Strips placed with Mastisol. Calculated blood loss for the case was 745 mL. There were no complications. All sponge, instrument, and needle counts were correct. The patient tolerated the procedure well and proceeded to the recovery room in stable condition. Both mother and infant are resting comfortably in recovery.
[2021-11-21] MEDS ORDERED: OXYTOCIN 30 UNITS/500 ML NS 30 UNIT in SALINE 1 500ML.BAG IV SCH (09:45)
[2021-11-21] MEDS: ACETAMINOPHEN TAB 500 MG TAB PO SCH ×3 (12:59→23:48)
[2021-11-21] MEDS: IBUPROFEN 600 MG TAB PO SCH ×2 (15:33→21:40)
[2021-11-21] MEDS: SENNOSIDES-DOCUSATE SODIUM 1 EACH TAB PO SCH (19:25)
[2021-11-22] MEDS: LACTATED RINGERS 1,000 ML IV SCH ×3 (03:33→19:42)
[2021-11-22] MEDS: IBUPROFEN 600 MG TAB PO SCH ×3 (03:38→23:23)
[2021-11-22] MEDS: ACETAMINOPHEN TAB 500 MG TAB PO SCH ×3 (06:21→20:18)
[2021-11-22 08:07] LABS: Basophils % (A) 0 %; Eosinophils % (A) 1 %; HCT 33.5 % (34.0-46.0); Lymphocytes # (A) 0.9 k/uL (1.0-4.8); Lymphocytes % (A) 14 %; MCH 32.6 pg (25.0-35.0); MCHC 32.9 g/dL (31.0-37.0); MCV 99.2 fL (80.0-100.0); Macrocytosis Slight; Mean Platelet Volume 8.4; Monocytes # (A) 0.4 k/uL (0-1.0); Monocytes % (A) 5 %; Neutrophils # (A) 5.3 k/uL (1.3-7.7); Neutrophils % (A) 79 %; Platelet Count 126 k/uL (150-450); RBC 3.38 m/uL (3.80-5.40); RDW 14.6 % (11.5-15.5); WBC 6.7 k/uL (3.8-10.6)
[2021-11-22] MEDS: SENNOSIDES-DOCUSATE SODIUM 1 EACH TAB PO SCH ×2 (08:34→20:14)
--- NOTE | 2021-11-22 08:46 | P.PNOBGPC ---
Subjective - Subjective Principal diagnosis: postop day 1, repeat section with tubal ligation Interval history: Patient is doing well postoperatively. She is ambulating and voiding without difficulty. She is tolerating regular diet without nausea or vomiting. She is bottle feeding. She denies concerns. Lochia is minimal. Patient reports: Reports appetite normal, Reports voiding normally, Reports pain well controlled, Reports ambulating normally [place]: doing well, bottle feeding Objective - Vital Signs Latest vital signs: Vital Signs Temp Pulse Resp BP Pulse Ox 11/22/21 08:00 98.2 F 89 16 106/70 11/22/21 03:42 97.5 F L 89 18 121/77 99 11/22/21 00:00 97.7 F 72 18 106/69 97 11/21/21 19:31 97.5 F L 84 18 129/90 97 11/21/21 15:50 97.3 F L 73 18 122/78 99 11/21/21 11:33 97.7 F 67 18 119/68 99 11/21/21 11:03 97.1 F L 67 18 117/78 96 11/21/21 10:33 75 18 116/78 98 11/21/21 10:18 82 18 116/76 98 11/21/21 10:01 97.1 F L 72 18 120/82 96 11/21/21 09:48 96.8 F L 77 18 117/74 97 11/21/21 09:33 96.9 F L 79 18 113/59 99 Intake and Output 11/21/21 11/22/21 11/22/21 22:59 06:59 14:59 Output Total 550 200 Balance -550 -200 Output: Urine 550 200 Uretheral (Evans) 100 Other: Voiding Method Indwelling Catheter - Exam Extremities: Present: normal, edema Abdomen: Present: normal appearance, soft Incision: Present: normal, dry, intact Uterus: Present: normal, firm - Labs Labs: Abnormal Lab Results - Last 24 Hours (Table) 11/22/21 Range/Units 07:59 RBC 3.38 L (3.80-5.40) m/uL Hgb 11.0 L (11.4-16.0) gm/dL Hct 33.5 L (34.0-46.0) % Plt Count 126 L (150-450) k/uL Lymphocytes # 0.9 L (1.0-4.8) k/uL Assessment and Plan (1) S/P section Current Visit: Yes Status: Acute Code(s): Z98.891 - HISTORY OF UTERINE SCAR FROM PREVIOUS SURGERY SNOMED Code(s): 814899345 (2) Advanced maternal age (AMA) in Current Visit: Yes Status: Acute Code(s): BSW6534 - SNOMED Code(s): 403714215 (3) Family planning Current Visit: Yes Status: Acute Code(s): Z30.09 - ENCOUNTER FOR OT GENERAL CNSL AND ADVICE ON CONTRACEPTION SNOMED Code(s): 463815846 (4) Previous section Current Visit: Yes Status: Acute Code(s): Z98.891 - HISTORY OF UTERINE SCAR FROM PREVIOUS SURGERY SNOMED Code(s): 817270698 (5) Term Current Visit: Yes Status: Acute Code(s): Z34.90 - ENCNTR FOR SUPRVSN OF NORMAL , UNSP, UNSP TRIMESTER SNOMED Code(s): 64938343 Plan: Patient is doing well postoperatively. We'll plan to continue routine postoperative care and anticipate discharge home tomorrow.
[2021-11-23] MEDS: IBUPROFEN 600 MG TAB PO SCH ×2 (04:43→05:48)
[2021-11-23] MEDS: ACETAMINOPHEN TAB 500 MG TAB PO SCH (05:43)
--- NOTE | 2021-11-23 07:03 | P.PN ---
Progress Note - Text 11/22/21 716am 35-year-old female status post with spinal Duramorph. Patient seen and evaluated for postop pain control, patient has a VAS of 4 with no complaints of nausea vomiting or pruritus. Patient doing well and has no anesthesia related issues
[2021-11-23 08:33] VITALS: BP 138/81; PULSE 114; RESP 16; TEMP 97.9
[2021-11-23] MEDS: SENNOSIDES-DOCUSATE SODIUM 1 EACH TAB PO SCH (08:39)
--- NOTE | 2021-11-23 09:22 | P.DS ---
Providers Date of admission: 11/21/21 06:02 Expected date of discharge: 11/23/21 Attending physician: Cachorro Waite Primary care physician: Stated None - Discharge Diagnosis(es) (1) S/P section Current Visit: Yes Status: Acute (2) Advanced maternal age (AMA) in Current Visit: Yes Status: Acute (3) Family planning Current Visit: Yes Status: Acute (4) Previous section Current Visit: Yes Status: Acute (5) Term Current Visit: Yes Status: Acute Hospital Course: This is a 35-year-old 003 that was admitted to labor and delivery at 39- 0/7 weeks on 11/21. Patient was admitted for repeat section with tubal ligation, she has a history of 3 prior C-sections. In addition she states she is done with family planning therefore bilateral tubal occlusion with Filshie clips was requested and consented. She has been receiving routine care which has been essentially uncomplicated. GBS cultures were negative. On bloodwork patient has a blood type of A+, as stated above group beta strep cultures were negative. Patient was admitted to labor and delivery and repeat section with tubal ligation was performed without difficulty. For full details on the C- section please see the operative report. Patient delivered a viable female infant 6 lbs. 11 oz., Apgars of 8 and 9 at one and 5 minutes respectively. Patient's course has been uneventful. On this day #2 she is in noting and voiding without difficulty. She is tolerating a regular diet without nausea or vomiting. She states her pain is well-controlled. She is bottle feeding. She denies concerns and would like discharge home. Patient Condition at Discharge: Good Plan - Discharge Summary New Discharge Prescriptions: No Action Ondansetron [Zofran] 4 mg PO TID PRN PRN Reason: Nausea Cyclobenzaprine [Flexeril] 10 mg PO TID DULoxetine HCL [Cymbalta] 60 mg PO DAILY LORazepam [Ativan] 0.5 tab PO DAILY Discharge Medication List Cyclobenzaprine [Flexeril] 10 mg PO TID 10/28/18 [History] DULoxetine HCL [Cymbalta] 60 mg PO DAILY 10/28/18 [History] Ondansetron [Zofran] 4 mg PO TID PRN 08/30/19 [History] LORazepam [Ativan] 0.5 tab PO DAILY 11/21/21 [History] Follow up Appointment(s)/Referral(s): Cachorro Waite MD [STAFF PHYSICIAN] - 2 Weeks Patient Instructions/Handouts: (DC), (GEN) Discharge Disposition: HOME SELF-CARE
== END 2021-11-23 09:55 | disposition home or self-care (01) | DRG 785 ==
LOC: 4FBP 06:02
PROVIDERS: ADMIT Obstetrics & Gynecology; ATTEND Obstetrics & Gynecology
PROC: 0UL70CZ Occlusion of Bilateral Fallopian Tubes with Extraluminal Device, Open Approach (ICD-10-PCS; principal; 2021-11-21 08:00)
PROC: 10D00Z1 Extraction of Products of Conception, Low, Open Approach (ICD-10-PCS; principal; 2021-11-21 08:00)
DX: O34.211 Maternal care for low transverse scar from previous cesarean delivery (principal); O99.344 Other mental disorders complicating childbirth; F31.9 Bipolar disorder, unspecified; M19.90 Unspecified osteoarthritis, unspecified site; F41.9 Anxiety disorder, unspecified; F60.3 Borderline personality disorder; M79.7 Fibromyalgia; Z30.2 Encounter for sterilization; Z37.0 Single live birth; Z3A.39 39 weeks gestation of pregnancy; Z79.899 Other long term (current) drug therapy
CPT/HCPCS: 85025; 86850; 86900; 86901

== ENCOUNTER 2022-05-13 11:45 | Inpatient (IN) | payer MEDICAID, OTHER ==
[2022-05-13 12:56] LABS: Amphetamine Screen,Urine Not Detected (NotDetected); Barbiturate Screen,Urine Not Detected (NotDetected); Benzodiazepines Screen,Urine Detected (NotDetected); Cocaine Screen,Urine Not Detected (NotDetected); Methadone Screen, Urine Not Detected (NotDetected); Opiate Screen,Urine Not Detected (NotDetected); Oxycodone Screen, Urine Not Detected (NotDetected); Phencyclidine Screen,Urine Not Detected (NotDetected); Tricyclic Antidepressant,Urine Not Detected (NotDetected); Urn Cannabinoid Scrn Detected (NotDetected)
--- NOTE | 2022-05-13 13:59 | ED ---
Psych HPI - General Chief Complaint: Psychiatric Symptoms Stated Complaint: mental health Time Seen by Provider: 05/13/22 11:59 Source: patient, RN notes reviewed Mode of arrival: ambulatory Limitations: no limitations - History of Present Illness Initial Comments: 36-year-old female presents emergency Department chief complaint of needs psychiatric evaluation. Patient states she started some medication states that this started 3 weeks ago she's been having increasing anxiety, feels unstable she's been diagnosed with bipolar, anxiety. Patient was advised, emergency from for psychiatric evaluation denies being suicidal denies illicit drug use no alcohol abuse - Related Data Home Medications Medication Instructions Recorded Confirmed Cyclobenzaprine [Flexeril] 10 mg PO TID 10/28/18 11/21/21 DULoxetine HCL [Cymbalta] 60 mg PO DAILY 10/28/18 11/21/21 Ondansetron [Zofran] 4 mg PO TID PRN 10/28/18 11/21/21 LORazepam [Ativan] 0.5 tab PO DAILY 11/21/21 11/21/21 Allergies Allergy/AdvReac Type Severity Reaction Status Date / Time No Known Allergies Allergy Verified 05/13/22 11:55 Review of Systems ROS Statement: Those systems with pertinent positive or pertinent negative responses have been documented in the HPI. ROS Other: All systems not noted in ROS Statement are negative. Past Medical History Past Medical History: Fibromyalgia Additional Past Medical History / Comment(s): hx migraines, "on metformin for sugar a little high and for wt loss", Low Back Pain. Arthritis. Borderline Personality Disorder, Anxiety, Depression. History of Any Multi-Drug Resistant Organisms: None Reported Past Surgical History: Section, Cholecystectomy Past Anesthesia/Blood Transfusion Reactions: No Reported Reaction Past Psychological History: Anxiety, Bipolar Smoking Status: Never smoker Past Alcohol Use History: None Reported Past Drug Use History: Marijuana - Past Family History Mother Family Medical History: No Reported History General Exam Limitations: no limitations General appearance: alert, in no apparent distress, anxious Head exam: Present: atraumatic, normocephalic, normal inspection ENT exam: Present: normal exam, mucous membranes moist Neck exam: Present: normal inspection, full ROM. Absent: tenderness, meningismus, lymphadenopathy Respiratory exam: Present: normal lung sounds bilaterally. Absent: respiratory distress, wheezes, rales, rhonchi, stridor Cardiovascular Exam: Present: regular rate, normal rhythm, normal heart sounds. Absent: systolic murmur, diastolic murmur, rubs, gallop, clicks Neurological exam: Present: alert, oriented X3 Psychiatric exam: Present: anxious Skin exam: Present: warm, dry, intact, normal color. Absent: rash Course Vital Signs 05/13/22 11:50 Temperature 98.1 F Pulse Rate 99 Respiratory 20 Rate Blood Pressure 134/85 O2 Sat by Pulse 100 Oximetry Medical Decision Making - Medical Decision Making Was pt. sent in by a medical professional or institution (, [facility], [facility], urgent care, hospital, or detention...) When possible be specific @ -No Did you speak to anyone other than the patient for history (EMS, parent, family, police, friend...)? What history was obtained from this source @ -No Did you review nursing and triage notes (agree or disagree)? Why? @ -I reviewed and agree with nursing and triage notes Were old charts reviewed (outside hosp., previous admission, EMS record, old EKG, old radiological studies, urgent care reports/EKG's, detention records)? Report findings @ -No old charts were reviewed Differential Diagnosis (chest pain, altered mental status, abdominal pain women, abdominal pain men, vaginal bleeding, weakness, fever, dyspnea, syncope, headache, dizziness, GI bleed, back pain, seizure, CVA, palpatations, mental health, musculoskeletal)? @ -Bipolar disorder, schizophrenia, anxiety, depression EKG interpreted by me (3pts min.). @ -None X-rays interpreted by me (1pt min.). @ -None done CT interpreted by me (1pt min.). @ -None done U/S interpreted by me (1pt. min.). @ -None done What testing was considered but not performed or refused? (CT, X-rays, U/S, labs)? Why? @ -None What meds were considered but not given or refused? Why? @ -None Did you discuss the management of the patient with other professionals (professionals i.e. KATHERINE Lopez, [facility], lab, RT, psych nurse, dialysis social worker, mobile equipment mechanic, teacher, property portfolio officer, disability case manager)? Give summary @ -EPS, psychiatry evaluated the patient Was smoking cessation discussed for >3mins.? @ -No Was critical care preformed (if so, how long)? @ -No Were there social determinants of health that impacted care today? How? (Homelessness, low income, unemployed, alcoholism, drug addiction, transportation, low edu. Level, literacy, decrease access to med. care, care home, rehab)? @ -No Was there de-escalation of care discussed even if they declined (Discuss DNR or withdrawal of care, Hospice)? DNR status @ -No What co-morbidities impacted this encounter? (DM, HTN, Smoking, COPD, CAD, Cancer, CVA, ARF, Chemo, Hep., AIDS, mental health diagnosis, sleep apnea, morbid obesity)? @ -None Was patient admitted / discharged? Hospital course, mention meds given and route, prescriptions, significant lab abnormalities, going to OR and other pertinent info. @ -Admitted to 3 W. for psychiatric treatment Undiagnosed new problem with uncertain prognosis? @ -No Drug Therapy requiring intensive monitoring for toxicity (Heparin, Nitro, Insulin, Cardizem)? @ -No Were any procedures done? @ -No Diagnosis/symptom? @ -Bipolar disorder Acute, or Chronic, or Acute on Chronic? @ -Acute Uncomplicated (without systemic symptoms) or Complicated (systemic symptoms)? @ -Uncomplicated Side effects of treatment? @ -No Exacerbation, Progression, or Severe Exacerbation? @ -No Poses a threat to life or bodily function? How? (Chest pain, USA, LA, pneumonia, PE, COPD, DKA, ARF, appy, cholecystitis, CVA, Diverticulitis, Homicidal, Suicidal, threat to staff... and all critical care pts) @ -No - Lab Data Lab Results 05/13/22 Range/Units 12:20 Urine Opiates Screen Not Detected (NotDetected) Ur Oxycodone Screen Not Detected (NotDetected) Urine Methadone Screen Not Detected (NotDetected) Ur Propoxyphene Screen Not Detected (NotDetected) Ur Barbiturates Screen Not Detected (NotDetected) U Tricyclic Antidepress Not Detected (NotDetected) Ur Phencyclidine Scrn Not Detected (NotDetected) Ur Amphetamines Screen Not Detected (NotDetected) U Methamphetamines Scrn Not Detected (NotDetected) U Benzodiazepines Scrn Detected H (NotDetected) Urine Cocaine Screen Not Detected (NotDetected) U Marijuana (THC) Screen Detected H (NotDetected) Disposition Clinical Impression: Bipolar disorder Disposition: TRANSFER TO PSYCH HOSP/UNIT Referrals: Alvaro Paula MD [Primary Care Provider] - 1-2 days Time of Disposition: 14:52
[2022-05-13] MEDS ORDERED: MAG HYDROX/AL HYDROX/SIMETH 30 ML CUP PO PRN (16:48)
[2022-05-13] MEDS ORDERED: MAGNESIUM HYDROXIDE 2,400 MG/10 ML CUP PO PRN (16:48)
[2022-05-13] MEDS ORDERED: LORazepam 2 MG/ML INJ IM PRN (16:53)
[2022-05-13] MEDS ORDERED: haloperidoL 5 MG TAB PO PRN (16:53)
[2022-05-13] MEDS ORDERED: hydrOXYzine pamoate 25 MG CAP PO PRN (16:53)
[2022-05-13] MEDS ORDERED: HALOPERIDOL LACTATE 5 MG/ML 1 ML VIAL IM PRN (16:53)
[2022-05-13] MEDS: QUEtiapine 50 MG TAB PO SCH (20:19)
[2022-05-13] MEDS: DULoxetine HCL 60 MG CAPSULE.DR PO SCH (20:19)
[2022-05-13] MEDS: lamoTRIgine 25 MG TAB PO SCH (20:19)
[2022-05-14 07:13] LABS: Basophils % (A) 1 %; Eosinophils # (A) 0.1 k/uL (0-0.7); Eosinophils % (A) 2 %; HCT 44.3 % (34.0-46.0); HGB 14.9 gm/dL (11.4-16.0); Lymphocytes # (A) 2.1 k/uL (1.0-4.8); Lymphocytes % (A) 36 %; MCH 31.4 pg (25.0-35.0); MCHC 33.7 g/dL (31.0-37.0); MCV 93.3 fL (80.0-100.0); Mean Platelet Volume 7.5; Monocytes # (A) 0.3 k/uL (0-1.0); Monocytes % (A) 5 %; Neutrophils # (A) 3.1 k/uL (1.3-7.7); Neutrophils % (A) 54 %; Platelet Count 238 k/uL (150-450); RBC 4.75 m/uL (3.80-5.40); RDW 12.8 % (11.5-15.5); WBC 5.8 k/uL (3.8-10.6)
[2022-05-14] MEDS: LORazepam 1 MG TAB PO PRN (07:26)
[2022-05-14 07:41] LABS: ALT 34 U/L (4-34); AST 26 U/L (14-36); African American GFR (CKD) >90 (>60 ml/min/1.73 sqM); Albumin 4.9 g/dL (3.5-5.0); Alkaline Phosphatase 52 U/L (38-126); Anion Gap 9 mmol/L; Blood Urea Nitrogen 12 mg/dL (7-17); Calcium 9.3 mg/dL (8.4-10.2); Carbon Dioxide 25 mmol/L (22-30); Chloride 104 mmol/L (98-107); Glucose 113 mg/dL (74-99); Non-African American GFR(CKD) >90 (>60 ml/min/1.73 sqM); Potassium 4.9 mmol/L (3.5-5.1); Sodium 138 mmol/L (137-145); Total Bilirubin 1.4 mg/dL (0.2-1.3); Total Protein 7.4 g/dL (6.3-8.2)
[2022-05-14] MEDS: DULoxetine HCL 60 MG CAPSULE.DR PO SCH ×2 (08:35→20:34)
[2022-05-14] MEDS: lamoTRIgine 25 MG TAB PO SCH ×3 (08:35→20:34)
[2022-05-14] MEDS ORDERED: NICOTINE 14MG/24HR PATCH TRANSDERM SCH (09:00)
[2022-05-14] MEDS: PROPRANOLOL 20 MG TAB PO SCH ×2 (12:22→20:34)
--- NOTE | 2022-05-14 13:16 | P.HP ---
Psychiatric H&P - . H&P Date: 05/14/22 History & Physical: Allergies Allergy/AdvReac Type Severity Reaction Status Date / Time No Known Allergies Allergy Verified 05/13/22 11:55 Vital Signs Temp 97.6 F 05/14/22 06:42 Pulse 104 H 05/14/22 06:42 Resp 18 05/14/22 06:42 BP 141/63 05/14/22 06:42 Pulse Ox 99 05/14/22 06:42 FiO2 Intake & Output 05/13/22 05/14/22 05/14/22 18:59 06:59 18:59 Weight 97.522 kg 95.963 kg Laboratory Last Values WBC 5.8 k/uL (3.8-10.6) 05/14/22 06:46 RBC 4.75 m/uL (3.80-5.40) 05/14/22 06:46 Hgb 14.9 gm/dL (11.4-16.0) 05/14/22 06:46 Hct 44.3 % (34.0-46.0) 05/14/22 06:46 MCV 93.3 fL (80.0-100.0) 05/14/22 06:46 MCH 31.4 pg (25.0-35.0) 05/14/22 06:46 MCHC 33.7 g/dL (31.0-37.0) 05/14/22 06:46 RDW 12.8 % (11.5-15.5) 05/14/22 06:46 Plt Count 238 k/uL (150-450) 05/14/22 06:46 MPV 7.5 05/14/22 06:46 Neutrophils % 54 % 05/14/22 06:46 Lymphocytes % 36 % 05/14/22 06:46 Monocytes % 5 % 05/14/22 06:46 Eosinophils % 2 % 05/14/22 06:46 Basophils % 1 % 05/14/22 06:46 Neutrophils # 3.1 k/uL (1.3-7.7) 05/14/22 06:46 Lymphocytes # 2.1 k/uL (1.0-4.8) 05/14/22 06:46 Monocytes # 0.3 k/uL (0-1.0) 05/14/22 06:46 Eosinophils # 0.1 k/uL (0-0.7) 05/14/22 06:46 Basophils # 0.0 k/uL (0-0.2) 05/14/22 06:46 Sodium 138 mmol/L (137-145) 05/14/22 06:46 Potassium 4.9 mmol/L (3.5-5.1) 05/14/22 06:46 Chloride 104 mmol/L (98-107) 05/14/22 06:46 Carbon Dioxide 25 mmol/L (22-30) 05/14/22 06:46 Anion Gap 9 mmol/L 05/14/22 06:46 BUN 12 mg/dL (7-17) 05/14/22 06:46 Creatinine 0.61 mg/dL (0.52-1.04) 05/14/22 06:46 Est GFR (CKD-EPI)AfAm >90 (>60 ml/min/1.73 sqM) 05/14/22 06:46 Est GFR (CKD-EPI)NonAf >90 (>60 ml/min/1.73 sqM) 05/14/22 06:46 Glucose 113 mg/dL (74-99) H 05/14/22 06:[address] Glu mg/dL 93 05/14/22 06:46 Hemoglobin A1c 4.9 % (0.0-6.0) 05/14/22 06:46 Calcium 9.3 mg/dL (8.4-10.2) 05/14/22 06:46 Total Bilirubin 1.4 mg/dL (0.2-1.3) H 05/14/22 06:46 AST 26 U/L (14-36) 05/14/22 06:46 ALT 34 U/L (4-34) 05/14/22 06:46 Alkaline Phosphatase 52 U/L (38-126) 05/14/22 06:46 Total Protein 7.4 g/dL (6.3-8.2) 05/14/22 06:46 Albumin 4.9 g/dL (3.5-5.0) 05/14/22 06:46 TSH 5.080 mIU/L (0.465-4.680) H 05/14/22 06:46 Urine Opiates Screen Not Detected (NotDetected) 05/13/22 12:20 Ur Oxycodone Screen Not Detected (NotDetected) 05/13/22 12:20 Urine Methadone Screen Not Detected (NotDetected) 05/13/22 12:20 Ur Propoxyphene Screen Not Detected (NotDetected) 05/13/22 12:20 Ur Barbiturates Screen Not Detected (NotDetected) 05/13/22 12:20 U Tricyclic Antidepress Not Detected (NotDetected) 05/13/22 12:20 Ur Phencyclidine Scrn Not Detected (NotDetected) 05/13/22 12:20 Ur Amphetamines Screen Not Detected (NotDetected) 05/13/22 12:20 U Methamphetamines Scrn Not Detected (NotDetected) 05/13/22 12:20 U Benzodiazepines Scrn Detected (NotDetected) H 05/13/22 12:20 Urine Cocaine Screen Not Detected (NotDetected) 05/13/22 12:20 U Marijuana (THC) Screen Detected (NotDetected) H 05/13/22 12:20 Coronavirus (PCR) Not Detected (Not Detectd) 05/13/22 15:42 05/14/22 10:39 IDENTIFYING DATA: Patient is a 36-year-old female, currently lives with her boyfriend in a house, has 4 kids, is currently unemployed. HPI: Patient presented to the hospital [yesterday for psychiatric evaluation. According to her report patient apparently was started on medications recently and has been having increased anxiety and feeling unstable. He report also states the patient has history of bipolar disorder and anxiety. Patient's urine drug screen was positive for THC and benzodiazepines. Patient was seen by an EPS nurse who stated in her report that patient was "recommended to come in by her PCP", report also states that patient has been having last 5 days increase in restlessness, pacing, racing thoughts and fidgeting. She has also been describing in urge to pull out her hair and feeling "out of control". Report also states the patient has been having poor sleep and a verbal altercation with police. Patient was seen in agreeable to speak to quality analyst/technical writer. Patient claims that she was feeling fairly anxious before coming in the hospital and states that her psychiatrist started her on Depakote and was also started on Cymbalta. She claims that she didn't want to get "hair loss" so she stopped the Depakote on her own and was put on vraylar to help stabilize her mood. She claims that this has been going on for about a week or so now. States that she was feeling more anxious and pacing and feeling like "I always have to go go go". She claims that she saw her counselor and also her primary care doctor told her to come to the hospital. She states that she is currently involved in mental health court due to a verbal altercation and also is being charged with "obstruction". She states that she is feeling anxious at this time. Claims that she does have a history of manic episodes and a history of bipolar disorder and also BPD. States that her sleep has been on and off, appetite has been fair. Denying any paranoia at this time]. Patient denies any suicidal or homicidal ideations intent or plan. At this time patient denies any auditory or visual hallucinations. Patient admits to using marijuana about 2 joints a day. PAST PSYCHIATRIC HISTORY: Patient states that [she has history of bipolar disorder and borderline personality disorder]. Patient claims that she was previously on Cymbalta, Ativan, Xanax and also vraylar in the past. Claims that she was admitted to a psychiatric hospital in [place] in 2008. [Patient denies any psychiatric outpatient follow-up currently but did see a nurse practitioner [facility] counseling previously.] [Patient claims that she cut her wrists previously in a suicide attempt. Past Medical History: Fibromyalgia Additional Past Medical History / Comment(s): hx migraines, "on metformin for sugar a little high and for wt loss", Low Back Pain. Arthritis. Borderline Personality Disorder, Anxiety, Depression. History of Any Multi-Drug Resistant Organisms: None Reported Past Surgical History: Section, Cholecystectomy Past Anesthesia/Blood Transfusion Reactions: No Reported Reaction Past Psychological History: Anxiety, Bipolar Smoking Status: Never smoker Past Alcohol Use History: None Reported Past Drug Use History: Marijuana ALLERGIES: as per EMR CHEMICAL DEPENDENCY HISTORY: as per HPI FAMILY PSYCHIATRIC/SUBSTANCE USE HISTORY: States that her mother has bipolar disorder SOCIAL HISTORY: Patient was born and raised in [facility] and also in [place]. She claims that she has completed high school and did some college. States that she did go to [place]way briefly recently for obstruction. She currently lives with her boyfriend and 4 children in a house. She is unemployed. MENTAL STATUS EXAM: General Appearance: Patient appears to be [overweight, disheveled hair,] stated age is alert, directable yet is tearful at times. Patient appears to have [poor] hygiene and grooming. Behavior: Patient is seated without any agitated behavior. Tearful. Speech: Patient's speech is [fluent and nonpressured.] Mood/Affect: Patient reports their mood is "anxious", affect is congruent Suicidality/Homicidality: Patient denies having any homicidal ideation intent or plan. [Denies any suicidal ideations intent or plan] Perceptions: Patient denies any visual hallucinations [and denies any auditory hallucinations] Though content/process: Minimizing her need for hospitalization, focused on discharge. No paranoia. Poor insight. Memory and concentration: AOX3, grossly intact for the purposes of this session. Can spell "WORLD" backwards Judgment and insight: [poor] STRENGTHS/WEAKNESSES: strength is that patient is [resilient]. Weakness is that patient [has poor judgment and is impulsive] INTELLECT: [average] IMPRESSIONS: []Bipolar disorder unspecified anxiety disorder NOS borderline persxonality disorder adverse medication reaction cannabis use disorder PLAN: -Patient is admitted under [voluntary] status to MHU for stabilization of psychiatric symptoms and safety. Patient has signed [adult voluntary form and] [medication consent] and is placed in patient's chart. -Medications : Will start patient on []Lamictal, 50 mg twice a day plus 25 mg at 1300 hr for mood stabilization, will continue titrating up as needed. seroquel 50 mg qhs for mood stabilization/insomnia. inderall 20 mg bid for akithesia/restlessness. continue cymbalta 60 mg bid for depression/anxiety, vistaril prn for anxiety. -Ativan [and Haldol] PRN for agitation/aggression [-Patient was counselled on substance abuse and desired to cut back on use] -Patient was informed of the risks, benefits and side effects of the medication and patient verbally consented to taking the medications. Patient signed med consent form and was placed in chart. -Internal Medicine consult to perform medical evaluation and physical. -NRT - not needed as patient does not smoke -SW on board for discharge planning. Encourage patient to participate in groups to work on coping skills.
[2022-05-14 13:32] LABS: Appearance,Urine Cloudy (Clear); Bilirubin,Urine Negative (Negative); Blood,Urine Negative (Negative); Calcium Oxalate Crystals,Urine Many /hpf; Color,Urine Yellow; Glucose,Urine (UA) Negative (Negative); Ketones,Urine Negative (Negative); Leukocyte Esterase,Urine Negative (Negative); Mucus,Urine Few /hpf; Nitrite,Urine Negative (Negative); PH, Urine 6.5 (5.0-8.0); Protein,Urine Trace (Negative); Specific Gravity,Urine 1.024 (1.001-1.035); Squamous Epithelial Cell,Urine 10 /hpf (0-4); Urobilinogen,Urine <2.0 mg/dL (<2.0); WBC,Urine 10 /hpf (0-5)
[2022-05-14] MEDS: ACETAMINOPHEN TAB 325 MG TAB PO PRN (15:37)
[2022-05-14] MEDS: QUEtiapine 50 MG TAB PO SCH (20:34)
--- NOTE | 2022-05-15 01:31 | P.CONS ---
History of Present Illness - Reason for Consult Consult date: 05/15/22 - History of Present Illness The patient is a 36-year-old female with a PMH of fibromyalgia, anxiety, and arthritis who presents to the emergency room with complaints of worsening anxiety and requested a psychiatric evaluation. The patient was admitted to the mental health unit where she was seen and evaluated. Patient states that she feels better after arrival at the unit and that she is looking forward to speaking with a psychiatrist so that her medications can be sorted out. She reports occasional upper mid back pain which she attributes to her fibromyalgia for which she is self-medicating with marijuana. She denied experiencing chest discomfort, shortness of breath, fever, chills, cough, nausea, vomiting, abdominal pain, diarrhea. Denied tobacco or alcohol or any additional substances. Review of systems: Pertinent positives and negatives as discussed in HPI, a complete review of systems was performed and all other systems are negative. Physical examination: General: non toxic, no distress, appears at stated age, obese Derm: no unusual rashes/lesions, no unusual ecchymoses, warm, dry Head: atraumatic, normocephalic, symmetric Eyes: EOMI, no lid lag, anicteric sclera ENT: Nose and ears atraumatic, no thrush, no pharyngeal erythema Neck: trachea midline, supple Mouth: no lip lesion, mucus membranes moist Cardiovascular: S1S2 reg, no murmur, no edema Lungs: CTA bilateral, no rhonchi, no rales , no accessory muscle use Abdominal: soft, nontender to palpation, no guarding Ext: no gross muscle atrophy, no contractures, Neuro: No gross focal neuro deficits noted Psych: Alert, oriented, appropriate affect Assessment: Elevated TSH Elevated total bilirubin Marijuana abuse Anxiety Imaging: None performed Data Review: Laboratory evaluation remarkable for TSH of 5.080, total bilirubin 1.4, urinalysis unremarkable with urine toxicology positive for marijuana. Plan: Advised patient on importance of cessation for marijuana use Obtain T3 and T4 levels Patient denies abdominal pain with T bili borderline elevated Thank you for allowing us to participate in the care of this patient. We will follow peripherally. Do not hesitate to contact us with questions. Someone can be reached from the [facility] hospitalist group at all hours of the day at [phone]. Past Medical History Past Medical History: Fibromyalgia Additional Past Medical History / Comment(s): hx migraines, "on metformin for sugar a little high and for wt loss", Low Back Pain. Arthritis. Borderline Personality Disorder, Anxiety, Depression. History of Any Multi-Drug Resistant Organisms: None Reported Past Surgical History: Section, Cholecystectomy Past Anesthesia/Blood Transfusion Reactions: No Reported Reaction Past Psychological History: Anxiety, Bipolar Additional Psychological History / Comment(s): borderline personality disorder, severe anxiety disorder Smoking Status: Never smoker Past Alcohol Use History: None Reported Past Drug Use History: Marijuana Additional Drug Use History / Comment(s): CURRENT MARIJUANA USE - Past Family History Mother Family Medical History: CVA/TIA Medications and Allergies Home Medications Medication Instructions Recorded Confirmed Type ALPRAZolam [Xanax] 1 mg PO TID 05/13/22 05/13/22 History Cariprazine HCl [Vraylar] 1.5 mg PO BID 05/13/22 05/13/22 History DULoxetine HCL [Cymbalta] 60 mg PO BID 05/13/22 05/13/22 History Diclofenac Sodium [Voltaren] 75 mg PO PC-BID 05/13/22 05/13/22 History Wqg-[id number]-Vtszj Acid 1 cap PO DAILY 05/13/22 05/13/22 History [-U Capsule (formulary)] Allergies Allergy/AdvReac Type Severity Reaction Status Date / Time No Known Allergies Allergy Verified 05/13/22 11:55 Physical Exam Vitals: Vital Signs Temp Pulse Resp BP Pulse Ox 05/14/22 12:23 111 H 20 126/76 05/14/22 06:42 97.6 F 104 H 18 141/63 99 Results CBC & Chem 7: 05/14/22 06:46 05/14/22 06:46 Labs: Abnormal Lab Results - Last 24 Hours (Table) 05/13/22 05/14/22 Range/Units 12:20 06:46 Glucose 113 H (74-99) mg/dL Total Bilirubin 1.4 H (0.2-1.3) mg/dL TSH 5.080 H (0.465-4.680) mIU/L Urine Appearance Cloudy H (Clear) Urine Protein Trace H (Negative) Urine WBC 10 H (0-5) /hpf Ur Squamous Epith Cells 10 H (0-4) /hpf Calcium Oxalate Crystal Many H (None) /hpf Urine Mucus Few H (None) /hpf
[2022-05-15] MEDS: ACETAMINOPHEN TAB 325 MG TAB PO PRN ×2 (05:34→21:01)
[2022-05-15] MEDS: DULoxetine HCL 60 MG CAPSULE.DR PO SCH (08:08)
[2022-05-15] MEDS: lamoTRIgine 25 MG TAB PO SCH ×3 (08:08→20:16)
[2022-05-15] MEDS: PROPRANOLOL 20 MG TAB PO SCH ×2 (08:08→20:16)
--- NOTE | 2022-05-15 10:57 | P.PN ---
Progress Note - Text Progress Note Date: 05/15/22 Interval History: Patient was seen wandering the hallways and was directable and agreeable to speak with science writer in the office. She states that her anxiety is slightly better but continues to have elevated anxiety overall. We discussed her mental health over the past few years including worsening symptoms after having a 6-month-old . She reports that while taking care of her , she has been sleeping at most 4-6 hours a day and also caring for her overall 4 children and has been overwhelming at times. However, she states that since being started on Vraylar 2 weeks ago, she has noticed increased anxiety and racing thoughts. Patient endorses a history of rapid racing thoughts, elevated energy, not needing sleep, and distractibility lasting for up to one month at most. She states that while , she is generally taken off of all of her psychotro pic medications including the recent . Patient also states that she has been tried on Lamictal before but said she was stopped on it because she had nausea (she was taking this with Zoloft). She states that last night she continued to have trouble sleeping and slept only 6 hours and woke up at 4:15 AM. She continues to endorse racing thoughts today. She becomes tearful while discussing her children. She is quite insightful into her behaviors while outside the hospital that are consistent with BPD. Patient mentions Xanax several times during the interview as being helpful for her anxiety but does not request this. At this time patient denies any suicidal or homicidal ideations, intent or plan. Patient denies any auditory, visual hallucinations and denies any paranoia or delusions. Patient denies any side effects from the medications and has been compliant with meds. Mental Status Exam: General Appearance: Patient appears to be overweight, combed hair, stated age is alert, directable. Patient appears to have fair hygiene and grooming. Behavior: Patient is seated without any agitated behavior. Tearful. Appears to be physically restless Speech: Patient's speech is fluent and nonpressured. Mood/Affect: Patient reports their mood is "anxious", affect is labile although more depressed Suicidality/Homicidality: Patient denies having any homicidal ideation intent or plan. Denies any suicidal ideations intent or plan Perceptions: Patient denies any visual hallucinations and denies any auditory hallucinations Though content/process: More introspective. Not as focused on discharge. No paranoia. Memory and concentration: AOX3, grossly intact for the purposes of this session. Can spell "WORLD" backwards Judgment and insight: Fair but impulsive Assessment Bipolar I disorder, currently manic with mixed features with anxious distress borderline persxonality disorder cannabis use disorder Potential EPS from antipsychotic Plan: -Patient is admitted under [voluntary] status to MHU for stabilization of psychiatric symptoms and safety. Patient has signed [adult voluntary form and] [medication consent] and is placed in patient's chart. -Medications : Continue Lamictal 50 mg twice a day plus 25 mg at 1300 hr for mood stabilization Increase seroquel to 150 mg qhs for mood stabilization/insomnia. Continue inderall 20 mg bid for akithesia/restlessness. Decrease cymbalta to 60 mg qAM and 30 mg qHS for depression/anxiety. Pt reports taking this also for DDD pain but due to risk of worsening darcy, will reduce this vistaril prn for anxiety. -Ativan [and Haldol] PRN for agitation/aggression -Patient was counselled on substance abuse and desired to cut back on use -Patient was informed of the risks, benefits and side effects of the medication and patient verbally consented to taking the medications. Patient signed med consent form and was placed in chart. -Internal Medicine consult to perform medical evaluation and physical. -NRT - not needed as patient does not smoke -SW on board for discharge planning. Encourage patient to participate in groups to work on coping skills.
[2022-05-15] MEDS: LORazepam 1 MG TAB PO PRN (15:04)
[2022-05-15] MEDS: QUEtiapine 50 MG TAB PO SCH (20:16)
[2022-05-15] MEDS: DULoxetine HCL 30 MG CAPSULE.DR PO SCH (20:16)
[2022-05-16] MEDS: PROPRANOLOL 20 MG TAB PO SCH ×2 (08:27→20:24)
[2022-05-16] MEDS: lamoTRIgine 25 MG TAB PO SCH ×3 (08:28→20:24)
[2022-05-16] MEDS: DULoxetine HCL 60 MG CAPSULE.DR PO SCH (08:28)
[2022-05-16] MEDS: DICLOFENAC 75 MG PO SCH ×2 (12:15→18:25)
--- NOTE | 2022-05-16 12:44 | P.PN ---
Progress Note - Text Progress Note Date: 05/16/22 Interval History: Patient was seen wandering the hallways and was directable and agreeable to sp zeb with marketing copywriter in the office. She reports significant improvement in her mood and anxiety with current medications. She states that she slept very well last night with the increased dose of Seroquel. She reports her current mood is "great ". She endorses participating in groups and says she has been walking around the unit as a result. However, she has noticed some pain due to degenerative disc disease and [facility] She denies other concerns and denies any questions. She reports eating well and having good energy today. She says she is concerned about conversation with her mother but has been able to let it go without fixating on the concern. At this time patient denies any suicidal or homicidal ideation, intent or plan. Patient denies any auditory, visual hallucinations and denies any paranoia or delusions. Patient denies any side effects from the medications and has been compliant with meds. Mental Status Exam: General Appearance: Patient appears to be overweight, combed hair, stated age is alert, directable. Patient appears to have fair hygiene and grooming. Behavior: Patient is seated without any agitated behavior. Not tearful. Less restless Speech: Patient's speech is fluent and nonpressured. Mood/Affect: Patient reports their mood is "great", affect is improving Suicidality/Homicidality: Patient denies having any homicidal ideation intent or plan. Denies any suicidal ideations intent or plan Perceptions: Patient denies any visual hallucinations and denies any auditory hallucinations Though content/process: More introspective. Not as focused on discharge. No paranoia. Memory and concentration: AOX3, grossly intact for the purposes of this session Judgment and insight: Fair but impulsive Assessment Bipolar I disorder, currently manic with mixed features with anxious distress borderline personality disorder cannabis use disorder Potential EPS from antipsychotic Plan: -Patient is admitted under [voluntary] status to MHU for stabilization of psychiatric symptoms and safety. Patient has signed [adult voluntary form and] [medication consent] and is placed in patient's chart. -Medications : Continue Lamictal 50 mg twice a day plus 25 mg at 1300 hr for mood stabilization Continue seroquel 150 mg qhs for mood stabilization/insomnia. Continue inderall 20 mg bid for akithesia/restlessness. Continue cymbalta 60 mg qAM and 30 mg qHS for depression/anxiety. vistaril prn for anxiety. -Ativan [and Haldol] PRN for agitation/aggression -Patient was counselled on substance abuse and desired to cut back on use -Patient was informed of the risks, benefits and side effects of the medication and patient verbally consented to taking the medications. Patient signed med consent form and was placed in chart. -Internal Medicine consult to perform medical evaluation and physical. -NRT - not needed as patient does not smoke -SW on board for discharge planning. Encourage patient to participate in groups to work on coping skills.
[2022-05-16] MEDS: DULoxetine HCL 30 MG CAPSULE.DR PO SCH (20:24)
[2022-05-16] MEDS: QUEtiapine 50 MG TAB PO SCH (20:24)
[2022-05-17] MEDS: DICLOFENAC 75 MG PO SCH ×2 (08:01→18:56)
[2022-05-17] MEDS: lamoTRIgine 25 MG TAB PO SCH ×3 (08:02→20:08)
[2022-05-17] MEDS: PROPRANOLOL 20 MG TAB PO SCH (08:02)
[2022-05-17] MEDS: DULoxetine HCL 60 MG CAPSULE.DR PO SCH (08:03)
--- NOTE | 2022-05-17 13:08 | P.PN ---
Progress Note - Text Progress Note Date: 05/17/22 Interval History: Patient was seen wandering the hallways and was directable and agreeable to birgit carrington with content writer in the office. She reports significant improvement in her mood and anxiety with current medications. She says she is feeling "great ". She says she has not felt this went a long time. She reports having slept well again with the Seroquel. She states that she had a difficult conversation with her family but was able to handle it well without feeling overly upset or overwhelmed. She is future oriented and denying suicidal ideation. She would like to spend time with her children and dog. She endorses participating in groups and was seen walking around the unit. She denies any concerns and denies any questions. She reports eating well and having good energy today. Patient denies having any feelings of restlessness that she had experienced following being on Vraylar. She is agreeable with decreasing the propranolol dose. At this time patient denies any suicidal or homicidal ideation, intent or plan. Patient denies any auditory, visual hallucinations and denies any paranoia or delusions. Patient denies any side effects from the medications and has been compliant with meds. Mental Status Exam: General Appearance: Patient appears to be overweight, combed hair, stated age is alert, directable. Patient appears to have fair hygiene and grooming. Behavior: Patient is seated without any agitated behavior. Speech: Patient's speech is fluent and nonpressured. Mood/Affect: Patient reports their mood is "great", affect is improving, smiling Suicidality/Homicidality: Patient denies having any homicidal ideation intent or plan. Denies any suicidal ideations intent or plan Perceptions: Patient denies any visual hallucinations and denies any auditory hallucinations Though content/process: More introspective. Goal-oriented. No paranoia. Memory and concentration: AOX3, grossly intact for the purposes of this session Judgment and insight: Fair, improving AIMS = 0 Assessment Bipolar I disorder, currently manic with mixed features with anxious distress borderline personality disorder cannabis use disorder Potential EPS from antipsychotic - no longer experiencing Plan: -Patient is admitted under [voluntary] status to MHU for stabilization of psychiatric symptoms and safety. Patient has signed [adult voluntary form and] [medication consent] and is placed in patient's chart. -Medications : Continue Lamictal 50 mg twice a day plus 25 mg at 1300 hr for mood stabilization Continue seroquel 150 mg qhs for mood stabilization/insomnia. Decrease inderall to 10 mg bid for akithesia/restlessness. May discontinue if tolerated as she does not appear to have akathisia any longer Continue cymbalta 60 mg qAM and 30 mg qHS for depression/anxiety. vistaril prn for anxiety. -Ativan [and Haldol] PRN for agitation/aggression -Patient was counselled on substance abuse and desired to cut back on use -Patient was informed of the risks, benefits and side effects of the medication and patient verbally consented to taking the medications. Patient signed med consent form and was placed in chart. -Internal Medicine consult to perform medical evaluation and physical. -NRT - not needed as patient does not smoke -SW on board for discharge planning. Encourage patient to participate in groups to work on coping skills. Plan for discharge Wednesday if continues to improve
[2022-05-17] MEDS: QUEtiapine 50 MG TAB PO SCH (20:07)
[2022-05-17] MEDS: DULoxetine HCL 30 MG CAPSULE.DR PO SCH (20:08)
[2022-05-17] MEDS: PROPRANOLOL 10 MG TAB PO SCH (20:08)
[2022-05-18 06:24] VITALS: RESP 18; TEMP 97.9
[2022-05-18] MEDS: DICLOFENAC 75 MG PO SCH (08:17)
[2022-05-18] MEDS: DULoxetine HCL 60 MG CAPSULE.DR PO SCH (08:19)
[2022-05-18] MEDS: lamoTRIgine 25 MG TAB PO SCH ×2 (08:19→12:48)
[2022-05-18] MEDS: PROPRANOLOL 10 MG TAB PO SCH (08:20)
[2022-05-18 08:21] VITALS: BP 119/65; PULSE 117
--- NOTE | 2022-05-18 11:47 | P.DS ---
Providers Date of admission: 05/13/22 16:45 Expected date of discharge: 05/18/22 Attending physician: Jairo Neumann MD Consults: 05/14/22 11:06 Consult Physician Routine Consulting Provider: Gladis Naranjo Consult Reason/Comments: H&P Do you want consulting provider notified?: Yes Primary care physician: Alvaro Paula MD - Discharge Diagnosis(es) (1) Bipolar affective, mixed, unspec Current Visit: Yes Status: Acute Priority: High (2) Anxiety disorder Current Visit: Yes Status: Acute Priority: High (3) Borderline personality disorder Current Visit: Yes Status: Acute Priority: Medium (4) Adverse effects of medication Current Visit: Yes Status: Acute Priority: High (5) Cannabis use disorder Current Visit: Yes Status: Acute Priority: Low Hospital Course: Admission HPI: Admission note was completed by medical technical writer "Patient is a 36-year-old female, currently lives with her boyfriend in a house, has 4 kids, is currently unemployed. Patient presented to the hospital yesterday for psychiatric evaluation. According to her report patient apparently was started on medications recently and has been having increased anxiety and feeling unstable. He report also states the patient has history of bipolar disorder and anxiety. Patient's urine drug screen was positive for THC and benzodiazepines. Patient was seen by an EPS nurse who stated in her report that patient was "recommended to come in by her PCP", report also states that patient has been having last 5 days increase in restlessness, pacing, racing thoughts and fidgeting. She has also been describing in urge to pull out her hair and feeling "out of control". Report also states the patient has been having poor sleep and a verbal altercation with police. Patient was seen in agreeable to speak to medical technical writer. Patient claims that she was feeling fairly anxious before coming in the hospital and states that her psychiatrist started her on Depakote and was also started on Cymbalta. She claims that she didn't want to get "hair loss" so she stopped the Depakote on her own and was put on vraylar to help stabilize her mood. She claims that this has been going on for about a week or so now. States that she was feeling more anxious and pacing and feeling like "I always have to go go go". She claims that she saw her counselor and also her primary care doctor told her to come to the hospital. She states that she is currently involved in mental health court due to a verbal altercation and also is being charged with "obstruction". She states that she is feeling anxious at this time. Claims that she does have a history of manic episodes and a history of bipolar disorder and also BPD. States that her sleep has been on and off, appetite has been fair. Denying any paranoia at this time. Patient denies any suicidal or homicidal ideations intent or plan. At this time patient denies any auditory or visual hallucinations. Patient admits to using marijuana about 2 joints a day." Hospital course: Upon admission to the unit patient was directable and agreeable to commence treatment and signed adult voluntary form. Patient was initially fairly anxious, pacing/restless however with treatment and time she got along well with other patients on the unit and followed unit protocol. Patient was compliant with the medications and denied any side effects throughout hospital course. Patient was started on propranolol 10 mg twice a day for anxiety/akathisia, Lamictal increased to a total dose of 150 mg daily for mood stabilization, Cymbalta decreased to 60 mg daily +30 mg daily at bedtime for depression/anxiety, Seroquel increased to 150 mg daily at bedtime for mood stabilization/insomnia. Patient spoke of her stressors and engaged in therapy both group and individual. Patient was also seen by medical team for history and physical exam. Throughout the course of the hospitalization patient gradually improved with regards to mood, anxiety, akithesia/resltessness, mood lability, sleep and became more future oriented with improved insight and judgment. On the day of discharge patient denied any suicidal or homicidal ideations intent or plan denied any auditory or visual hallucinations. Patient endorsed wanting to live for her health and for her kids. The patient denied any access to guns or weapons. Patient denied any paranoia and did not endorse any delusions. Patient does have a significant history of substance abuse and was counseled on abstaining from all substances including alcohol and marijuana. Patient elected to do outpatient substance use treatment program through [facility]. Patient was also counseled on the medications and need for regular compliance and was encouraged to follow-up with their outpatient appointment for mental health and also for primary care. Prior to discharge a family meeting will be arranged by social professionals to answer any questions and ensure safety upon discharge. Mental status exam: General Appearance: Patient appears to be overweight, stated age is alert, pleasant, and cooperative. Patient is in no acute distress and has improved hygiene and grooming Behavior: Patient is calmly seated without any agitated behavior. pleasant Speech: Patient's speech is fluent and nonpressured. Mood/Affect: Patient reports their mood is "good", affect is congruent and euthymic. Suicidality/Homicidality: Patient denies having any suicidal or homicidal ideation intent or plan. Perceptions: Patient denies any auditory or visual hallucinations. Though content/process: There is no evidence of any delusional thought content and thought process is linear and goal-directed. more future oriented Memory and concentration: AOX3, grossly intact for the purposes of this session. Can spell "WORLD" backwards correctly. Judgment and insight: chronically poor, however has improved with guarded prognosis Impression: Bipolar disorder, mixed, unspecified Borderline personality disorder Anxiety disorder unspecified Adverse effect of medication Cannabis use disorder Plan: -Continue with discharge today as patient has improved and stabilized psychiatrically and is not currently an imminent threat to herself and/or others. Patient will remain at chronically elevated risk for harm to self and/or others due to her impulsivity and substance abuse. -Continue medications: Lamictal 150 mg daily for mood stabilization/depression, Seroquel 150 mg daily at bedtime for mood stabilization/insomnia, propranolol 10 mg twice a day for akathisia/restlessness, Cymbalta 60 mg daily +30 mg daily at bedtime for anxiety/mood. D/c vraylar and xanax. -Patient was counseled on the need for medication compliance and appropriate follow-up at mental health and also primary care for medical issues. Patient verbalized understanding and agreed. -Social work to arrange for and conduct family meeting to ensure safety upon discharge and answer any questions/concerns. Social work also to arrange for patients follow up appointments with [facility] for psychiatric care along with follow up with primary care provider. -Patient counseled on abstaining from recreational drugs and marijuana and alcohol. Was informed/educated on the adverse effects on their physical and mental health. Patient verbally agreed and understood. -Patient was instructed to return to the hospital or seek immediate medical care if their psychiatric or medical symptoms do worsen or reoccur. Allergies Allergy/AdvReac Type Severity Reaction Status Date / Time No Known Allergies Allergy Verified 05/13/22 11:55 Laboratory Results WBC 5.8 k/uL (3.8-10.6) 05/14/22 06:46 RBC 4.75 m/uL (3.80-5.40) 05/14/22 06:46 Hgb 14.9 gm/dL (11.4-16.0) 05/14/22 06:46 Hct 44.3 % (34.0-46.0) 05/14/22 06:46 MCV 93.3 fL (80.0-100.0) 05/14/22 06:46 MCH 31.4 pg (25.0-35.0) 05/14/22 06:46 MCHC 33.7 g/dL (31.0-37.0) 05/14/22 06:46 RDW 12.8 % (11.5-15.5) 05/14/22 06:46 Plt Count 238 k/uL (150-450) 05/14/22 06:46 MPV 7.5 05/14/22 06:46 Neutrophils % 54 % 05/14/22 06:46 Lymphocytes % 36 % 05/14/22 06:46 Monocytes % 5 % 05/14/22 06:46 Eosinophils % 2 % 05/14/22 06:46 Basophils % 1 % 05/14/22 06:46 Neutrophils # 3.1 k/uL (1.3-7.7) 05/14/22 06:46 Lymphocytes # 2.1 k/uL (1.0-4.8) 05/14/22 06:46 Monocytes # 0.3 k/uL (0-1.0) 05/14/22 06:46 Eosinophils # 0.1 k/uL (0-0.7) 05/14/22 06:46 Basophils # 0.0 k/uL (0-0.2) 05/14/22 06:46 Sodium 138 mmol/L (137-145) 05/14/22 06:46 Potassium 4.9 mmol/L (3.5-5.1) 05/14/22 06:46 Chloride 104 mmol/L (98-107) 05/14/22 06:46 Carbon Dioxide 25 mmol/L (22-30) 05/14/22 06:46 Anion Gap 9 mmol/L 05/14/22 06:46 BUN 12 mg/dL (7-17) 05/14/22 06:46 Creatinine 0.61 mg/dL (0.52-1.04) 05/14/22 06:46 Est GFR (CKD-EPI)AfAm >90 (>60 ml/min/1.73 sqM) 05/14/22 06:46 Est GFR (CKD-EPI)NonAf >90 (>60 ml/min/1.73 sqM) 05/14/22 06:46 Glucose 113 mg/dL (74-99) H 05/14/22 06:[address] Glu mg/dL 93 05/14/22 06:46 Hemoglobin A1c 4.9 % (0.0-6.0) 05/14/22 06:46 Calcium 9.3 mg/dL (8.4-10.2) 05/14/22 06:46 Total Bilirubin 1.4 mg/dL (0.2-1.3) H 05/14/22 06:46 AST 26 U/L (14-36) 05/14/22 06:46 ALT 34 U/L (4-34) 05/14/22 06:46 Alkaline Phosphatase 52 U/L (38-126) 05/14/22 06:46 Total Protein 7.4 g/dL (6.3-8.2) 05/14/22 06:46 Albumin 4.9 g/dL (3.5-5.0) 05/14/22 06:46 TSH 5.080 mIU/L (0.465-4.680) H 05/14/22 06:46 Free T4 0.97 ng/dL (0.78-2.19) 05/15/22 06:49 Total T3 135.0 ng/dL (60.0-180.0) 05/15/22 06:49 Urine Color Yellow 05/13/22 12:20 Urine Appearance Cloudy (Clear) H 05/13/22 12:20 Urine pH 6.5 (5.0-8.0) 05/13/22 12:20 Ur Specific Cardale 1.024 (1.001-1.035) 05/13/22 12:20 Urine Protein Trace (Negative) H 05/13/22 12:20 Urine Glucose (UA) Negative (Negative) 05/13/22 12:20 Urine Ketones Negative (Negative) 05/13/22 12:20 Urine Blood Negative (Negative) 05/13/22 12:20 Urine Nitrite Negative (Negative) 05/13/22 12:20 Urine Bilirubin Negative (Negative) 05/13/22 12:20 Urine Urobilinogen <2.0 mg/dL (<2.0) 05/13/22 12:20 Ur Leukocyte Esterase Negative (Negative) 05/13/22 12:20 Urine WBC 10 /hpf (0-5) H 05/13/22 12:20 Ur Squamous Epith Cells 10 /hpf (0-4) H 05/13/22 12:20 Calcium Oxalate Crystal Many /hpf (None) H 05/13/22 12:20 Urine Mucus Few /hpf (None) H 05/13/22 12:20 Urine HCG, Qual Not Detected (Not Detectd) 05/13/22 12:20 Urine Opiates Screen Not Detected (NotDetected) 05/13/22 12:20 Ur Oxycodone Screen Not Detected (NotDetected) 05/13/22 12:20 Urine Methadone Screen Not Detected (NotDetected) 05/13/22 12:20 Ur Propoxyphene Screen Not Detected (NotDetected) 05/13/22 12:20 Ur Barbiturates Screen Not Detected (NotDetected) 05/13/22 12:20 Lamotrigine 3.4 ug/mL (2.0-15.0) 05/14/22 06:46 U Tricyclic Antidepress Not Detected (NotDetected) 05/13/22 12:20 Ur Phencyclidine Scrn Not Detected (NotDetected) 05/13/22 12:20 Ur Amphetamines Screen Not Detected (NotDetected) 05/13/22 12:20 U Methamphetamines Scrn Not Detected (NotDetected) 05/13/22 12:20 U Benzodiazepines Scrn Detected (NotDetected) H 05/13/22 12:20 Urine Cocaine Screen Not Detected (NotDetected) 05/13/22 12:20 U Marijuana (THC) Screen Detected (NotDetected) H 05/13/22 12:20 Coronavirus (PCR) Not Detected (Not Detectd) 05/13/22 15:42 Vital Signs Temp 97.9 F 05/18/22 06:24 Pulse 117 H 05/18/22 08:20 Resp 18 05/18/22 06:24 BP 119/65 05/18/22 08:20 Pulse Ox 99 05/18/22 06:24 FiO2 Intake & Output 05/17/22 05/18/22 05/18/22 18:59 06:59 18:59 Weight 94.3 kg Patient Condition at Discharge: Stable Plan - Discharge Summary Discharge Rx Participant: No New Discharge Prescriptions: New DULoxetine HCL [Cymbalta] 60 mg PO DAILY 30 Days #30 cap DULoxetine HCL [Cymbalta] 30 mg PO HS 30 Days #30 cap lamoTRIgine [LaMICtal] 150 mg PO DAILY 30 Days #30 tablet Propranolol [Inderal] 10 mg PO BID 30 Days #60 tab QUEtiapine [SEROquel] 150 mg PO HS 30 Days #90 tab Continue [id number] Acid [-U Capsule (formulary)] 1 cap PO DAILY Discontinued DULoxetine HCL [Cymbalta] 60 mg PO BID Cariprazine HCl [Vraylar] 1.5 mg PO BID Diclofenac Sodium [Voltaren] 75 mg PO PC-BID ALPRAZolam [Xanax] 1 mg PO TID Discharge Medication List [id number] Acid [-U Capsule (formulary)] 1 cap PO DAILY 05/13/22 [History] DULoxetine HCL [Cymbalta] 30 mg PO HS 30 Days #30 cap 05/18/22 [Rx] DULoxetine HCL [Cymbalta] 60 mg PO DAILY 30 Days #30 cap 05/18/22 [Rx] Propranolol [Inderal] 10 mg PO BID 30 Days #60 tab 05/18/22 [Rx] QUEtiapine [SEROquel] 150 mg PO HS 30 Days #90 tab 05/18/22 [Rx] lamoTRIgine [LaMICtal] 150 mg PO DAILY 30 Days #30 tablet 05/18/22 [Rx] Follow up Appointment(s)/Referral(s): [facility] [Outside] - 05/22/22 11:00 am (05/22/2022 11:00AM - 12:00PM [facility] 05/29/2022 11:00AM - 12:30PM Alvaro Segovia MD [Primary Care Provider] - 1-2 days Activity/Diet/Wound Care/Special Instructions: Avoid the use of street drugs and alcohol. Take all medications as prescribed. When you are in need of refills on your medications, please contact your medical provider and/or outpatient psychiatrist to have this done. Please go to scheduled outpatient appointments for aftercare treatment. If symptoms return or become worse, call the crisis line at and/or go to the nearest emergency room for evaluation. Discharge Disposition: HOME SELF-CARE
== END 2022-05-18 12:51 | disposition home or self-care (01) | DRG 753 ==
LOC: SUPCPDRO 11:45 → EC 11:45 → 3MHU 16:45
PROVIDERS: ADMIT Psychiatry & Neurology Psychiatry; ATTEND Psychiatry & Neurology Psychiatry
DX: F31.60 Bipolar disorder, current episode mixed, unspecified (principal); F41.9 Anxiety disorder, unspecified; F60.3 Borderline personality disorder; G47.00 Insomnia, unspecified; M79.7 Fibromyalgia; Z81.8 Family history of other mental and behavioral disorders; Z79.899 Other long term (current) drug therapy; F12.10 Cannabis abuse, uncomplicated; Z71.51 Drug abuse counseling and surveillance of drug abuser; Z71.9 Counseling, unspecified; Z56.0 Unemployment, unspecified; Z28.311 Partially vaccinated for COVID-19; Z28.21 Immunization not carried out because of patient refusal; Z20.822 Contact with and (suspected) exposure to COVID-19
CPT/HCPCS: 80053; 80175; 80306; 81001; 81025; 82075; 83036; 84436; 84439; 84443; 84480; 85025; 87635; 99285

== ENCOUNTER → 2022-09-08 | Outpatient (CLI) | payer OTHER ==
--- NOTE | 2022-09-09 13:16 | MM ---
Reason for Exam: Screening (asymptomatic). Baseline mammogram. Patient History: Menarche at age 12. First Full-Term at age 25. Last menstrual period: 08/24/2022 Risk Values: Victorina 5 year model risk: 0.4%. NCI Lifetime model risk: 11.3%. Prior Study Comparison: Patient's first Mammogram. Tissue Density: There are scattered fibroglandular densities. Findings: Analyzed By CAD. Pattern appears symmetrical. Couple of benign punctate calcifications are within the left breast. No suspicious groups of microcalcifications, spiculated or lobular masses, architectural distortion or other secondary signs of malignancy are mammographically apparent. Overall Assessment: Benign, BI-RAD 2 Management: Screening Mammogram of both breasts in 1 year. A negative mammogram report should not preclude additional follow up of suspicious palpable abnormalities. Patient should continue monthly self breast exam. A clinical breast exam by your physician is recommended on an annual basis and results should be correlated with mammographic findings. Electronically signed and approved by: Jairo Orosco D.O. Radiologis
== END | disposition home or self-care (01) ==
LOC: RADMAMWWP 14:49
PROVIDERS: ATTEND Family Medicine
DX: Z12.31 Encounter for screening mammogram for malignant neoplasm of breast (principal)
CPT/HCPCS: 77067

== ENCOUNTER 2022-09-11 12:55 | Emergency (ER) | payer OTHER ==
[2022-09-11 13:42] VITALS: BP 113/74; PULSE 81; RESP 20; TEMP 98.3
[2022-09-11] MEDS ORDERED: KETOROLAC 15 MG/ML 1 ML VIAL IM STA (13:54)
--- NOTE | 2022-09-11 14:31 | XR ---
EXAMINATION TYPE: XR ankle complete LT DATE OF EXAM: 09/11/2022 COMPARISON: None HISTORY: Pain following fall TECHNIQUE: 3 view left ankle FINDINGS: Ankle mortise appears intact. There is prominent soft tissue swelling over the lateral mall eolus. No acute fracture or dislocation is evident. Some joint effusion may be present. Follow up exams can be performed 7-10 days from acute trauma for continued pain. If soft tissue evalu ation. Benefit, consider MRI. IMPRESSION: 1. No acute osseous abnormality left ankle. 2. Prominent soft tissue swelling over the lateral malleolus with a suggestion of small joint effusio n.
--- NOTE | 2022-09-11 14:35 | XR ---
EXAMINATION TYPE: XR lumbar spine 2 or 3V DATE OF EXAM: 09/11/2022 Comparison: 07/13/2014 Clinical History: 36-year-old female pain after fall, Pain Findings: Cholecystectomy clips. 5 lumbar type vertebral bodies. There is some facet arthropathy in the lower l umbar spine. Vertebral body heights are preserved. Alignment is maintained. Disc interspaces also pre served. Bilateral tubal ligation clips. Impression: Mild facet arthropathy lower lumbar spine. No vertebral compression collapse or malalignment.
[2022-09-11] MEDS ORDERED: ACET/COD 300 MG/30 MG STARTER PACK 6 TAB BTL PO STA (15:11)
[2022-09-11] MEDS ORDERED: IBUPROFEN 600 MG STARTER PACK 4 TAB BTL PO STA (15:11)
--- NOTE | 2022-09-11 15:13 | ED ---
Lower Extremity Injury HPI - General Chief Complaint: Extremity Injury, Lower Stated Complaint: L Ankle Pain Time Seen by Provider: 09/11/22 13:47 Source: patient, RN notes reviewed Mode of arrival: ambulatory Limitations: no limitations - History of Present Illness Initial Comments: This is a 36-year-old female who presents to the emergency department for left ankle pain. Patient states that she jumped off her porch earlier today, and did not use the steps. She subsequently twisted her ankle when she fell. She is still able to ambulate. Most of the pain is on the left side of the ankle. Denies hitting her head or sustaining any other injuries. She also inquired about an x-ray of her lower back. States that she has an x-ray order at [facility] for an x-ray of her lumbar spine due to pain and wondered if she could have it imaged here as well to avoid making another trip. Denies any recent injuries to the back or loss of bowel/bladder control or saddle anesthesia. Denies any fevers, chills, sore throat, cough, dyspnea, chest pain, palpitations, abdominal pain, nausea, vomiting, diarrhea, or headaches. MD Complaint: ankle injury - Related Data Home Medications Medication Instructions Recorded Confirmed Snj-Cans-Zopwk Acid 1 cap PO DAILY 05/13/22 05/13/22 [-U Capsule (formulary)] Previous Rx's Medication Instructions Recorded DULoxetine HCL [Cymbalta] 30 mg PO HS 30 Days #30 cap 05/18/22 DULoxetine HCL [Cymbalta] 60 mg PO DAILY 30 Days #30 cap 05/18/22 Propranolol [Inderal] 10 mg PO BID 30 Days #60 tab 05/18/22 QUEtiapine [SEROquel] 150 mg PO HS 30 Days #90 tab 05/18/22 lamoTRIgine [LaMICtal] 150 mg PO DAILY 30 Days #30 tablet 05/18/22 Allergies Allergy/AdvReac Type Severity Reaction Status Date / Time No Known Allergies Allergy Verified 09/11/22 13:42 Review of Systems ROS Statement: Those systems with pertinent positive or pertinent negative responses have been documented in the HPI. ROS Other: All systems not noted in ROS Statement are negative. Past Medical History Past Medical History: Fibromyalgia Additional Past Medical History / Comment(s): hx migraines, "on metformin for sugar a little high and for wt loss", Low Back Pain. Arthritis. Borderline Personality Disorder, Anxiety, Depression. History of Any Multi-Drug Resistant Organisms: None Reported Past Surgical History: Section, Cholecystectomy Past Anesthesia/Blood Transfusion Reactions: No Reported Reaction Past Psychological History: Anxiety, Bipolar Smoking Status: Never smoker Past Alcohol Use History: None Reported Past Drug Use History: Marijuana - Past Family History Mother Family Medical History: CVA/TIA General Exam Limitations: no limitations General appearance: alert, in no apparent distress Head exam: Present: atraumatic, normocephalic, normal inspection Respiratory exam: Present: normal lung sounds bilaterally. Absent: respiratory distress, wheezes, rales, rhonchi, stridor Cardiovascular Exam: Present: regular rate, normal rhythm, normal heart sounds. Absent: systolic murmur, diastolic murmur, rubs, gallop, clicks Extremities exam: Present: other (Tenderness and swelling to the left lateral malleolus. 2+ DP and PT pulses.) Back exam: Present: normal inspection, full ROM. Absent: tenderness Neurological exam: Present: alert, oriented X3, CN II-XII intact Psychiatric exam: Present: normal affect, normal mood Skin exam: Present: warm, dry, intact, normal color. Absent: rash Course Vital Signs 09/11/22 13:40 Temperature 98.3 F Pulse Rate 81 Respiratory 20 Rate Blood Pressure 113/74 O2 Sat by Pulse 96 Oximetry Medical Decision Making - Medical Decision Making This is a 36-year-old female who presents to the emergency department left ankle pain. Was pt. sent in by a medical professional or institution? @ -No Did you speak to anyone other than the patient for history? @ -No Did you review nursing and triage notes? @ -Yes, and I agree, it is accurate with regards to the patient's symptoms. Were old charts reviewed? @ -No Differential Diagnosis? @ -Differential ankle pain: Fracture, dislocation, contusion, sprain, this is not meant to be an all- inclusive list. EKG interpreted by me (3pts min.)? @ -Not obtained X-rays interpreted by me (1pt min.)? @ -XR of the left ankle and lumbar spine obtained. My intepretation of both x- rays identifies no acute fractures. CT interpreted by me (1pt min.)? @ -None U/S interpreted by me (1pt. min.)? @ -None What testing was considered but not performed? (CT, X-rays, U/S, labs)? Why? @ -None What meds were considered but not given? Why? @ -None Did you discuss the management of the patient with other professionals? @ -No Did you reconcile home meds? @ -No Was smoking cessation discussed for >3mins.? @ -No Was critical care preformed (if so, how long)? @ -No Were there social determinants of health that impacted care today? How? (Homelessness, low income, unemployed, alcoholism, drug addiction, transportation, low edu. Level, literacy, decrease access to med. care, usp, rehab)? @ -No Was there de-escalation of care discussed even if they declined? (Discuss DNR or withdrawal of care, Hospice)? @ -No What co-morbidities impacted this encounter? (DM, HTN, Smoking, COPD, CAD, Cancer, CVA, Hep., AIDS, mental health diagnosis, sleep apnea, morbid obesity)? @ -Morbid obesity, fibromyalgia Was patient admitted / discharged? @ -Discharged. X-ray of the left ankle obtained revealing a small joint effusion without any evidence of fractures or dislocations. Advised the patient that this is most likely related to an ankle sprain. She was put in a Velcro stirrup splint. I offered crutches, however she declined. Toradol was administered in the emergency department, which she felt was beneficial. Additionally, we did do the x-ray of the lumbar spine per the patient's request. This revealed mild facet arthropathy without any acute findings. Findings discussed with the patient. She will otherwise follow up with her primary care provider regarding the lumbar spine and left ankle sprain. Patient is instructed to alternate with ibuprofen and tylenol for pain relief and apply ice to the ankle for 15-20 minutes every 2-3 hours for the first 2-3 days followed by heat there afterwards. Undiagnosed new problem with uncertain prognosis? @ -None Drug Therapy requiring intensive monitoring for toxicity (Heparin, Nitro, Insulin, Cardizem)? @ -None Were any procedures done? @ -None Diagnosis/symptom? @ -Left ankle sprain Acute, or Chronic, or Acute on Chronic? @ -Acute Uncomplicated (without systemic symptoms) or Complicated (systemic symptoms)? @ -Uncomplicated Side effects of treatment? @ -None Exacerbation, Progression, or Severe Exacerbation] @ -Not applicable Poses a threat to life or bodily function? @ -No Diagnosis/symptom? @ -Lower back pain Acute, or Chronic, or Acute on Chronic? @ -Chronic Uncomplicated (without systemic symptoms) or Complicated (systemic symptoms)? @ -Uncomplicated Side effects of treatment? @ -None Exacerbation, Progression, or Severe Exacerbation] @ -Stable Poses a threat to life or bodily function? @ -No Return precautions reviewed in depth, the patient is instructed to return to the emergency department with any new, worsening, or concerning symptoms. Patient verbalized understanding. This case was discussed in detail with the attending ED physician, Dr. Diaz. Presentation, findings, and treatment plan discussed in detail as well. - Radiology Data Radiology results: report reviewed, image reviewed Disposition Clinical Impression: Left ankle sprain, Lumbar back pain Disposition: HOME SELF-CARE Instructions (If sedation given, give patient instructions): Ankle Sprain (ED) Additional Instructions: Return to the emergency department with any new, worsening, or concerning symptoms. Alternate with ibuprofen and Tylenol as needed for pain relief. Apply ice for 15-20 minutes every 2-3 hours and keep the ankle elevated. Follow up with your primary care provider in 1-2 days. Is patient prescribed a controlled substance at d/c from ED?: No Referrals: Dennis Clark DO [Primary Care Provider] - 1-2 days
== END 2022-09-11 15:25 | disposition home or self-care (01) ==
LOC: EC 12:55
DX: S93.402A Sprain of unspecified ligament of left ankle, initial encounter (principal); M54.50 Low back pain, unspecified; Z86.59 Personal history of other mental and behavioral disorders; F12.90 Cannabis use, unspecified, uncomplicated; X50.9XXA Other and unspecified overexertion or strenuous movements or postures, initial encounter; Y93.39 Activity, other involving climbing, rappelling and jumping off
CPT/HCPCS: 72100; 73610; 99283; 96372; J1885

== ENCOUNTER 2022-12-23 08:39 | Emergency (ER) | payer OTHER ==
[2022-12-23 09:02] VITALS: TEMP 98.2
[2022-12-23] MEDS ORDERED: KETOROLAC 15 MG/ML 1 ML VIAL IM STA (09:16)
--- NOTE | 2022-12-23 09:27 | ED ---
Lower Extremity Injury HPI - General Chief Complaint: Extremity Injury, Lower Stated Complaint: R ankle pain Time Seen by Provider: 12/23/22 08:53 Source: patient, family, RN notes reviewed Mode of arrival: ambulatory Limitations: no limitations - History of Present Illness Initial Comments: Patient is a 37-year-old female presenting to the ER with a chief complaint of right ankle pain. Patient states she was stepping off the porch this morning when she inverted her ankle. She reports immediate pain, her current pain scale is 8 out of 10. She describes the pain as a sharp pain that wraps around her lateral malleolus into the base of the fifth metatarsal, which is made worse with movement. She has been icing her ankle since the incident. Denies any paresthesias. - Related Data Home Medications Medication Instructions Recorded Confirmed [id number] Acid 1 cap PO DAILY 05/13/22 05/13/22 [-U Capsule (formulary)] Previous Rx's Medication Instructions Recorded DULoxetine HCL [Cymbalta] 30 mg PO HS 30 Days #30 cap 05/18/22 DULoxetine HCL [Cymbalta] 60 mg PO DAILY 30 Days #30 cap 05/18/22 Propranolol [Inderal] 10 mg PO BID 30 Days #60 tab 05/18/22 QUEtiapine [SEROquel] 150 mg PO HS 30 Days #90 tab 05/18/22 lamoTRIgine [LaMICtal] 150 mg PO DAILY 30 Days #30 tablet 05/18/22 Allergies Allergy/AdvReac Type Severity Reaction Status Date / Time No Known Allergies Allergy Verified 12/23/22 08:45 Review of Systems ROS Statement: Those systems with pertinent positive or pertinent negative responses have been documented in the HPI. ROS Other: All systems not noted in ROS Statement are negative. Past Medical History Past Medical History: Fibromyalgia Additional Past Medical History / Comment(s): hx migraines, "on metformin for sugar a little high and for wt loss", Low Back Pain. Arthritis. Borderline Personality Disorder, Anxiety, Depression. History of Any Multi-Drug Resistant Organisms: None Reported Past Surgical History: Section, Cholecystectomy Past Anesthesia/Blood Transfusion Reactions: No Reported Reaction Past Psychological History: Anxiety, Bipolar Smoking Status: Vaper Past Alcohol Use History: None Reported Past Drug Use History: Marijuana - Past Family History Mother Family Medical History: CVA/TIA General Exam Limitations: no limitations General appearance: alert, in no apparent distress Respiratory exam: Present: normal lung sounds bilaterally. Absent: respiratory distress, wheezes, rales, rhonchi, stridor Cardiovascular Exam: Present: regular rate, normal rhythm, normal heart sounds. Absent: systolic murmur, diastolic murmur, rubs, gallop, clicks Extremities exam: Present: other (Edema noted over right lateral malleolus. 2+ dorsalis pedis pulse. Pain with inversion of the ankle. equal strength dorsi/plantar flexion bilaterally) Course Vital Signs 12/23/22 08:43 Temperature 98.2 F Pulse Rate 80 Respiratory 18 Rate Blood Pressure 106/78 O2 Sat by Pulse 100 Oximetry Medical Decision Making - Medical Decision Making Was pt. sent in by a medical professional or institution (, PA, MARKET RELATIONSHIP MANAGER, urgent care, hospital, or group home...) When possible be specific @ -No Did you speak to anyone other than the patient for history (EMS, parent, family, police, friend...)? What history was obtained from this source @ -No Did you review nursing and triage notes (agree or disagree)? Why? @ -I reviewed and agree with nursing and triage notes Were old charts reviewed (outside hosp., previous admission, EMS record, old EKG, old radiological studies, urgent care reports/EKG's, group home records)? Report findings @ -No old charts were reviewed Differential Diagnosis (chest pain, altered mental status, abdominal pain women, abdominal pain men, vaginal bleeding, weakness, fever, dyspnea, syncope, headache, dizziness, GI bleed, back pain, seizure, CVA, palpatations, mental health, musculoskeletal)? @ -Sprain, fracture, dislocation, EKG interpreted by me (3pts min.). @ -None X-rays interpreted by me (1pt min.). @ -Right ankle x-ray shows mild soft tissue swelling over the lateral malleolus negative for acute fracture or dislocation. CT interpreted by me (1pt min.). @ -None done U/S interpreted by me (1pt. min.). @ -None done What testing was considered but not performed or refused? (CT, X-rays, U/S, labs)? Why? @ -None What meds were considered but not given or refused? Why? @ -None Did you discuss the management of the patient with other professionals (professionals i.e. , PA, MARKET RELATIONSHIP MANAGER, lab, RT, psych nurse, school social worker, admissions specialist, teacher, police officer crime prevention, director of casework)? Give summary @ -No Was smoking cessation discussed for >3mins.? @ -No Was critical care preformed (if so, how long)? @ -No Were there social determinants of health that impacted care today? How? (Homelessness, low income, unemployed, alcoholism, drug addiction, transportation, low edu. Level, literacy, decrease access to med. care, senior living, rehab)? @ -No Was there de-escalation of care discussed even if they declined (Discuss DNR or withdrawal of care, Hospice)? DNR status @ -No What co-morbidities impacted this encounter? (DM, HTN, Smoking, COPD, CAD, Cancer, CVA, ARF, Chemo, Hep., AIDS, mental health diagnosis, sleep apnea, morbid obesity)? @ -None Was patient admitted / discharged? Hospital course, mention meds given and route, prescriptions, significant lab abnormalities, going to OR and other pertinent info. @ -Patient is a 37-year-old female presenting to the ER with a chief complaint of right ankle injury. Right ankle x-ray was significant for mild soft tissue swelling negative for any acute fractures or dislocations. Patient received ketorolac IM for pain control. Patient will be discharged home with an ankle stir-up with activity as tolerated. Tylenol and Motrin for pain control. Patient advised to follow up with PCP or return if pain persists. Undiagnosed new problem with uncertain prognosis? @ -No Drug Therapy requiring intensive monitoring for toxicity (Heparin, Nitro, Insulin, Cardizem)? @ -No Were any procedures done? @ -No Diagnosis/symptom? @ -Right ankle sprain Acute, or Chronic, or Acute on Chronic? @ -Acute Uncomplicated (without systemic symptoms) or Complicated (systemic symptoms)? @ -Uncomplicated Side effects of treatment? @ -No Exacerbation, Progression, or Severe Exacerbation? @ -No Poses a threat to life or bodily function? How? (Chest pain, [place], [place], pneumonia, PE, COPD, DKA, ARF, appy, cholecystitis, CVA, Diverticulitis, Homicidal, Suicidal, threat to staff... and all critical care pts) @ -No - Radiology Data Radiology results: report reviewed, image reviewed Disposition Clinical Impression: Sprain and strain of ankle Disposition: HOME SELF-CARE Condition: Stable Instructions (If sedation given, give patient instructions): Ankle Sprain (ED) Additional Instructions: Please return to the Emergency Department if symptoms worsen or any other concerns. Is patient prescribed a controlled substance at d/c from ED?: No Referrals: Alvaro Paula MD [Primary Care Provider] - 1-2 days Time of Disposition: 10:43
--- NOTE | 2022-12-23 10:23 | XR ---
EXAMINATION TYPE: XR ankle complete RT DATE OF EXAM: 12/23/2022 COMPARISON: None HISTORY: Right ankle injury, fall TECHNIQUE: 3 view right ankle FINDINGS: Ankle mortise is intact. No acute fracture or dislocation is evident. There is mild soft ti ssue swelling over the lateral malleolus. Follow up exams can be performed 7-10 days from acute trauma for continued pain. IMPRESSION: 1. Soft tissue swelling lateral malleolus. 2. No acute osseous abnormality right ankle
[2022-12-23 11:04] VITALS: BP 124/83; PULSE 71; RESP 16
== END 2022-12-23 11:01 | disposition home or self-care (01) ==
LOC: EC 08:39
DX: S93.401A Sprain of unspecified ligament of right ankle, initial encounter (principal); F41.9 Anxiety disorder, unspecified; F31.9 Bipolar disorder, unspecified; F17.290 Nicotine dependence, other tobacco product, uncomplicated; F12.90 Cannabis use, unspecified, uncomplicated; Z79.899 Other long term (current) drug therapy; X50.9XXA Other and unspecified overexertion or strenuous movements or postures, initial encounter
CPT/HCPCS: 73610; 99283; 96372; J1885

== ENCOUNTER → 2023-05-27 | Outpatient (CLI) | payer OTHER | END | disposition home or self-care (01) | LOC: LABWHC1 11:07 | PROVIDERS: ATTEND Internal Medicine | DX: Z53.9 Procedure and treatment not carried out, unspecified reason (principal) ==

== ENCOUNTER → 2023-05-27 | Outpatient (CLI) | payer OTHER ==
--- NOTE | 2023-05-27 12:08 | US ---
EXAMINATION TYPE: US abdomen complete DATE OF EXAM: 05/27/2023 COMPARISON: NONE CLINICAL INDICATION: Female, 37 years old with history of K21.9 GASTRO-ESOPHAGEAL REFLUX DISEASE WITH OUT ESO; Hx Cholecystectomy; Vomiting and diarrhea x few months TECHNIQUE: Multiple sonographic images of the abdomen are obtained. FINDINGS: EXAM MEASUREMENTS: Liver Length: 21.2 cm Gallbladder Wall: NA cm CBD: 0.4 cm Spleen: 13 cm normal 12.5 cm Right Kidney: 10.9 x 4.1 x 5.3 cm Left Kidney: 11.7 x 5.5 x 6.4 cm PHARMACEUTICAL ASSISTANT NOTES: Pancreas: wnl Liver: Enlarged Gallbladder: wnl Evidence for sonographic Bahena's sign: No CBD: wnl Spleen: Slightly enlarged Right Kidney: wnl Left Kidney: wnl Upper IVC: wnl Abd Aorta: wnl IMPRESSION: 1. Hepato- splenomegaly.
[2023-05-27 15:55] LABS: Appearance,Urine Cloudy (Clear); Bacteria,Urine Rare /hpf; Bilirubin,Urine Negative (Negative); Blood,Urine Large (Negative); Color,Urine Yellow; Glucose,Urine (UA) Negative (Negative); Ketones,Urine Negative (Negative); Leukocyte Esterase,Urine Small (Negative); Mucus,Urine Many /hpf; Nitrite,Urine Negative (Negative); Protein,Urine 1+ (Negative); RBC,Urine 3 /hpf (0-5); Specific Gravity,Urine 1.014 (1.001-1.035); Squamous Epithelial Cell,Urine 4 /hpf (0-4); Urobilinogen,Urine <2.0 mg/dL (<2.0); WBC,Urine 2 /hpf (0-5)
[2023-05-27 16:34] LABS: Basophils # (A) 0.03 X 10*3/uL (0.00-0.10); Basophils % (A) 0.5 %; Eosinophils # (A) 0.06 X 10*3/uL (0.04-0.35); HCT 43.5 % (37.2-46.3); HGB 14.2 g/dL (12.0-15.0); Lymphocytes # (A) 1.69 X 10*3/uL (0.90-5.00); Lymphocytes % (A) 29.2 %; MCH 31.9 pg (27.0-32.0); MCHC 32.6 g/dL (32.0-37.0); MCV 97.8 FL (80.0-97.0); Mean Platelet Volume 10.2 FL (9.5-12.2); Monocytes # (A) 0.37 X 10*3/uL (0.20-1.00); Monocytes % (A) 6.4 %; NRBC Per 100 WBC 0 X 10*3/uL (0.00-0.01); Neutrophils # (A) 3.62 X 10*3/uL (1.80-7.70); Neutrophils % (A) 62.6 %; Platelet Count 226 X 10*3/uL (140-440); RBC 4.45 X 10*6/uL (4.10-5.20); RDW 12.5 % (11.5-14.5); WBC 5.79 X 10*3/uL (4.50-10.00)
[2023-05-27 16:35] LABS: ALT 26 U/L (8-44); AST 17 U/L (13-35); Albumin 5.1 g/dL (3.8-4.9); Albumin/Globulin Ratio 2.12 Ratio (1.60-3.17); Alkaline Phosphatase 66 U/L (41-126); BUN/Creat Ratio 20.14 Ratio (12.00-20.00); Blood Urea Nitrogen 14.1 mg/dL (9.0-27.0); Carbon Dioxide 25.2 mmol/L (21.6-31.8); Chloride 102 mmol/L (96-109); Chol/HDL Ratio 4.24 Ratio; Creatine Kinase 128 U/L (26-186); Globulin 2.4 g/dL (1.6-3.3); Glucose 102 mg/dL (70-110); LDL Cholesterol,Calculated 125.9 mg/dL (0.0-131.0); Magnesium 2.2 mg/dL (1.5-2.4); Potassium 4.4 mmol/L (3.5-5.5); Rheumatoid Factor, Qnt <15 IU/mL (0-15); Sodium 140 mmol/L (135-145); T4, Free (Free Thyroxine) 1.32 ng/dL (0.80-1.80); Total Bilirubin 1.5 mg/dL (0.3-1.2); Total Protein 7.5 g/dL (6.2-8.2); Uric Acid 3.9 mg/dL (2.9-7.7)
[2023-05-27 19:00] LABS: Centromere Antibody <0.2 AI; Centromere Antibody Interp Negative (Negative); DNA Double-Stranded Negative (Negative); Scleroderma SC-70 Ab <0.2 AI
[2023-05-27 19:38] LABS: Cyclic Citrull Pep IgG Unit <1.5 U/mL (<=3.9); Cyclic Citrullinated Pep IgG Negative
--- NOTE | 2023-05-27 21:00 | XR ---
EXAMINATION TYPE: XR hand complete bilateral DATE OF EXAM: 05/27/2023 COMPARISON: Three-view bilateral hands HISTORY: Pain arthralgia TECHNIQUE: Bilateral hands exam 3 views each FINDINGS: No acute fractures or dislocations evident. Soft tissues appear normal. Joint spaces are preserved. No periarticular erosions evident. IMPRESSION: 1. No acute osseous abnormality radiographically apparent bilateral hands
--- NOTE | 2023-05-27 21:01 | XR ---
EXAMINATION TYPE: XR ankle complete RT DATE OF EXAM: 05/27/2023 COMPARISON: None HISTORY: Sprain 3 months prior, continued pain TECHNIQUE: 3 view right ankle FINDINGS: Ankle mortise is intact. No acute fracture or dislocation is evident. Soft tissues appear n ormal. No subacute osseous abnormality radiographically evident. IMPRESSION: 1. No acute or subacute osseous abnormality right ankle
== END | disposition home or self-care (01) ==
LOC: RADUSWWP 09:58
PROVIDERS: ATTEND Internal Medicine
DX: R16.2 Hepatomegaly with splenomegaly, not elsewhere classified (principal); K21.9 Gastro-esophageal reflux disease without esophagitis; M25.541 Pain in joints of right hand; M25.542 Pain in joints of left hand; S93.401A Sprain of unspecified ligament of right ankle, initial encounter; R11.0 Nausea; R19.7 Diarrhea, unspecified; Z90.49 Acquired absence of other specified parts of digestive tract; X58.XXXA Exposure to other specified factors, initial encounter
CPT/HCPCS: 76700; 80053; 80061; 81001; 82550; 83036; 83735; 84439; 84443; 84550; 85025; 86038; 86200; 86225; 86235; 86431

== ENCOUNTER → 2023-12-14 | Outpatient (CLI) | payer OTHER, MEDICARE ==
[2023-12-14 10:59] LABS: ALT 27 U/L (8-44); AST 16 U/L (13-35); Albumin 4.7 g/dL (3.8-4.9); Albumin/Globulin Ratio 2.04 Ratio (1.60-3.17); Alkaline Phosphatase 68 U/L (41-126); Blood Urea Nitrogen 14.7 mg/dL (9.0-27.0); Calcium 10.2 mg/dL (8.7-10.3); Carbon Dioxide 25.5 mmol/L (21.6-31.8); Chloride 98 mmol/L (96-109); Chol/HDL Ratio 3.43 Ratio; Globulin 2.3 g/dL (1.6-3.3); Glucose 125 mg/dL (70-110); LDL Cholesterol,Calculated 69.3 mg/dL (0.0-131.0); Potassium 4.6 mmol/L (3.5-5.5); Sodium 137 mmol/L (135-145); T4, Free (Free Thyroxine) 1.12 ng/dL (0.80-1.80); Total Bilirubin 0.8 mg/dL (0.3-1.2)
[2023-12-14 11:24] LABS: Basophils # (A) 0.03 X 10*3/uL (0.00-0.10); Basophils % (A) 0.4 %; Eosinophils # (A) 0.17 X 10*3/uL (0.04-0.35); Eosinophils % (A) 2.4 %; HCT 38.9 % (37.2-46.3); HGB 12.5 g/dL (12.0-15.0); Lymphocytes # (A) 2.02 X 10*3/uL (0.90-5.00); Lymphocytes % (A) 28.9 %; MCH 29.9 pg (27.0-32.0); MCHC 32.1 g/dL (32.0-37.0); MCV 93.1 FL (80.0-97.0); Mean Platelet Volume 9.6 FL (9.5-12.2); Monocytes # (A) 0.43 X 10*3/uL (0.20-1.00); Monocytes % (A) 6.2 %; NRBC Per 100 WBC 0 X 10*3/uL (0.00-0.01); Neutrophils # (A) 4.25 X 10*3/uL (1.80-7.70); Platelet Count 256 X 10*3/uL (140-440); RBC 4.18 X 10*6/uL (4.10-5.20); RDW 13.8 % (11.5-14.5); WBC 6.98 X 10*3/uL (4.50-10.00)
== END | disposition home or self-care (01) ==
LOC: LABWHC1 07:43
PROVIDERS: ATTEND Internal Medicine
CPT/HCPCS: 36415; 80053; 80061; 82140; 82607; 82746; 83036; 84439; 84443; 85025; 86618; 86780

== ENCOUNTER → 2023-12-23 | Outpatient (CLI) | payer MEDICARE, OTHER ==
--- NOTE | 2023-12-23 13:44 | MR ---
EXAMINATION TYPE: MR brain wo/w con DATE OF EXAM: 12/23/2023 COMPARISON: None HISTORY: Difficulty with memory, pain in bilateral hands and ankles. TECHNIQUE: Multiplanar, multisequence images of the brain and brainstem is performed without and with IV contras t, utilizing 9 mL intravenous Gadavist . Findings: On the T1-weighted sagittal images the midline structures including the craniovertebral junction rela tionships appear normal. The ventricles and basal cisterns and sulci with convexities are within normal limits and there is no mass effect or shift of the midline structures. There are small focal calcifications in the genu of the internal capsules bilaterally. There is no acute ischemic event based on diffusion-weighted imaging. There is no pathological enhancement throughout the brain parenchyma. The posterior fossa is unremarkable. The intraorbital contents appear normal and symmetric. There is a few mucous retention cysts or polyps in the right maxillary sinus indicating mild right ch ronic sinusitis. IMPRESSION: 1. Small focal calcifications in the internal capsules bilaterally. Correlate with CT of the head for confirmation. 2. No mass, mass effect or acute ischemic event. 3. No pathological enhancement throughout the brain parenchyma. [facility], Workstation: [id number] 12/23/2023 1:42 PM
== END | disposition home or self-care (01) ==
LOC: RADMRIMAIN 07:48
PROVIDERS: ATTEND Internal Medicine
DX: R41.3 Other amnesia (principal)
CPT/HCPCS: 70553